=== PATIENT | female | born 1990 | race Caucasian/White ===

== ENCOUNTER 2017-11-20 13:27 | Emergency (ER) | payer BC ==
--- NOTE | 2017-11-20 14:33 | ED ---
General Adult HPI - General Chief complaint: Abdominal Pain Stated complaint: 19wks / dog fell on her stomach Source: patient Mode of arrival: ambulatory Limitations: no limitations - History of Present Illness Initial comments: Dictation was produced using [employer] dictation software. please excuse any grammatical, word or spelling errors. Chief Complaint: 27-year-old female presents with abdominal pain after abdominal trauma. She is allegedly 19 weeks based on ultrasound. History of Present Illness: A 27-year-old female who is with her first child. She is allegedly 19 weeks based on ultrasound performed by VIN[employer] TOP INSTALLER. She has been taking vitamins. Proximal to 1 hour prior to arrival shows her dog jumped approximately 6 feet and landed on her abdomen. After the incident she began complaining of some abdominal pain that persisted. Patient otherwise feels well. Denies any vaginal discharge or vaginal bleeding. Patient states she has not been feeling the baby moving however has not noticed any movement during this . Patient denies any palpitations with the . Patient has no other medical complaints. Denies any nausea vomiting. Past Medical History: [reviewed, none to report] Past Surgical History:[reviewed, none to report] Social History: [denies alcohol, tobacco or illicit drug use] Family History: reviewed and noncontributory The ROS documented in this emergency department record has been reviewed and confirmed by me. Those systems with pertinent positive or negative responses have been documented in the HPI. All other systems are other negative and/or noncontributory. - Related Data Home Medications Medication Instructions Recorded Confirmed Psh-Zung-Wmzxo Acid 1 cap PO DAILY 11/20/17 11/20/17 [-U Capsule (formulary)] Allergies Allergy/AdvReac Type Severity Reaction Status Date / Time Sulfa (Sulfonamide Allergy Rash/Hives Verified 11/20/17 13:58 Antibiotics) Review of Systems ROS Statement: Those systems with pertinent positive or pertinent negative responses have been documented in the HPI. ROS Other: All systems not noted in ROS Statement are negative. Past Medical History Past Medical History: No Reported History History of Any Multi-Drug Resistant Organisms: None Reported Past Surgical History: No Surgical Hx Reported Past Psychological History: No Psychological Hx Reported Smoking Status: Never smoker Past Alcohol Use History: None Reported Past Drug Use History: None Reported General Exam - General Exam Comments Initial Comments: Vitals: Vital signs upon arrival are within acceptable limits PHYSICAL EXAM: General Impression: Alert and oriented x3, not in acute distress HEENT: Normocephalic atraumatic, extra-ocular movements intact, pupils equal and reactive to light bilaterally, mucous membranes moist. Cardiovascular: Heart regular rate and rhythm, S1&S2 audible, no murmurs, rubs or gallops Chest: Lungs clear to auscultation bilaterally, no rhonchi, no wheeze, no rales Abdomen: Bowel sounds present, abdomen soft, non-tender, non-distended, no organomegaly, no external signs of trauma to the abdomen Musculoskeletal: Pulses present and equal in all extremities, no peripheral edema Motor: Power 5/5 bilaterally, no focal deficits noted Neurological: CN II-XII grossly intact, no focal motor or sensory deficits noted Skin: Intact with no visualized rashes Psych: Normal affect and mood Limitations: no limitations Course Vital Signs 11/20/17 13:41 Temperature 98.7 F Pulse Rate 84 Respiratory 20 Rate Blood Pressure 126/88 O2 Sat by Pulse 99 Oximetry Medical Decision Making - Medical Decision Making ED course: 27-year-old female who is 19 weeks presents after abdominal trauma. Physical examination is benign. No history of vaginal bleeding. Vital signs are stable. bedside ultrasound was performed showing intrauterine consistent with stated age. Documented heart rate was approximately 187. There was movement noted to the baby. No free fluid in the abdomen. Labor and delivery staff was notified to document heart tones.OB ultrasound was obtained. Single live intrauterine with establish gestational age. heart rate was measured be 146. Patient reports improvement of her symptoms. Discussed with patient that if she feels that her pain is severe she said the hospital where she can be discharged with follow-up with her VINYL TOP INSTALLER. Patient feels as though her pain is improving with mild residual symptoms. I believe this disposition is reasonable given that patient feels improved and trauma to the abdomen is negligible and ultrasound is negative that she can be discharged with follow-up with her VINYL TOP INSTALLER. At this point doubt any serious abdominal or pelvic trauma Patient is told to seek medical attention if she expressing worsening abdominal pain or vaginal bleeding. Patient is understandable and agreeable. She'll be discharge. Told discharge patient was distress, physical examination is benign. Vital signs are stable. Disposition Clinical Impression: Abdominal trauma, Disposition: HOME SELF-CARE Condition: Fair Instructions: Blunt Abdominal Injury (ED) Additional Instructions: follow up with [facility] INSTALLER Is patient prescribed a controlled substance at d/c from ED?: No Referrals: Roberto Carrillo MD [Primary Care Provider] - 1-2 days
--- NOTE | 2017-11-20 16:01 | US ---
EXAMINATION TYPE: US OB >= 14 wk fetus DATE OF EXAM: 11/20/2017 COMPARISON: None CLINICAL HISTORY: 27-year-old female with Pain. Patient states dog jumped on her abdomen. General pa in. TECHNIQUE: Transabdominal (TA) FINDINGS: GESTATIONAL AGE / DATING Physician Established: (18 weeks/1 days) EDC: 04/22/2018 Dates by Current Scan: (18 weeks/0 days) EDC: 04/23/2018 SURVEY IUP: Single PLACENTA: Posterior PREVIA: No Previa but slightly low lying measuring 4.4 cm from the internal cervical os. JENNIE: 15.2 cm Normal CERVICAL LENGTH (transabdominal: norm > 3.0cm): 3.6 cm BIOMETRY PRESENTATION: Variable LIE: Transverse with head maternal Rt BPD: 4.0 cm 18 weeks / 0 days HC: 14.9 cm 18 weeks / 0 days AC: 12.9 cm 18 weeks / 3 days FL: 2.6 cm 18 weeks / 0 days ESTIMATED WEIGHT IN GRAMS: 228.2 grams ESTIMATED WEIGHT IN LBS/OZ: 0 lbs. 8 oz. WEIGHT PERCENTAGE BASED ON ESTABLISHED DATES: 48.1% HC/AC: 1.2 Normal FL/AC: 20.4 HEART RATE: 146 bpm RHYTHM: Normal Silica Mixer Operator notes: Single live IUP measuring 18 weeks 0 days IMPRESSION: 1. Single live intrauterine with established gestational age of 18 weeks 1 day. Current ult rasound biometry is concordant (18 weeks 0 days). 2. Complete survey recommended at 18-20 weeks.
[2017-11-20 16:34] VITALS: BP 143/65; PULSE 78; RESP 18; TEMP 98.9
== END 2017-11-20 16:35 | disposition home or self-care (01) ==
LOC: EC 13:27
DX: O9A.22 Injury, poisoning and certain other consequences of external causes complicating childbirth (principal); S39.91XA Unspecified injury of abdomen, initial encounter; Z88.2 Allergy status to sulfonamides; Z3A.18 18 weeks gestation of pregnancy; W54.1XXA Struck by dog, initial encounter
CPT/HCPCS: 76805; 99284

== ENCOUNTER 2018-02-04 22:57 | Emergency (ER) | payer BC ==
--- NOTE | 2018-02-05 00:46 | ED ---
Female Urogenital HPI - General Chief complaint: Urogenital Stated complaint: skin issue Time Seen by Provider: 02/05/18 00:17 Source: patient, RN notes reviewed Mode of arrival: ambulatory Limitations: no limitations - History of Present Illness Initial comments: 27-year-old female presents emergency from chief complaint of rash on her labia. Patient states is slightly white in nature and raise. She states that is not painful or itchy. Patient states that she has no abnormal discharge from her baseline. She has no dysuria no hematuria. Patient states that she's had no prior STDs including herpes outbreak. 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 - Related Data Home Medications Medication Instructions Recorded Confirmed Yak-Muah-Kuhfe Acid 1 cap PO DAILY 11/20/17 11/20/17 [-U Capsule (formulary)] Allergies Allergy/AdvReac Type Severity Reaction Status Date / Time Sulfa (Sulfonamide Allergy Rash/Hives Verified 02/04/18 23:11 Antibiotics) Review of Systems ROS Statement: Those systems with pertinent positive or pertinent negative responses have been documented in the HPI. ROS Other: All systems not noted in ROS Statement are negative. Past Medical History Past Medical History: Asthma Additional Past Medical History / Comment(s): scoliosis History of Any Multi-Drug Resistant Organisms: None Reported Past Surgical History: No Surgical Hx Reported Additional Past Surgical History / Comment(s): wisdom teeth removed Past Psychological History: No Psychological Hx Reported Smoking Status: Never smoker Past Alcohol Use History: None Reported Past Drug Use History: None Reported General Exam Limitations: no limitations General appearance: alert, in no apparent distress Head exam: Present: atraumatic, normocephalic, normal inspection Respiratory exam: Present: normal lung sounds bilaterally. Absent: respiratory distress, wheezes, rales, rhonchi, stridor Cardiovascular Exam: Present: regular rate, normal rhythm, normal heart sounds. Absent: systolic murmur, diastolic murmur, rubs, gallop, clicks GI/Abdominal exam: Present: soft, normal bowel sounds. Absent: distended, tenderness, guarding, rebound, rigid External exam: Present: other (Exam performed with Angelica SEGAL). Absent: normal external exam (Genital warts noted in the lower labial region) Course Vital Signs 02/04/18 23:06 Temperature 98.2 F Pulse Rate 99 Respiratory 18 Rate Blood Pressure 133/76 O2 Sat by Pulse 98 Oximetry Medical Decision Making - Medical Decision Making 27-year-old female presented emergency dept for rash. Patient is noted have genital wart. Patient was instructed to follow-up with her TRIMMING OPERATOR for treatment. Return parameters discussed. Disposition Clinical Impression: Genital warts Disposition: HOME SELF-CARE Condition: Stable Instructions: Genital Warts (ED) Additional Instructions: Please contact your TRIMMING OPERATOR for further treatment.Please return to the Emergency Department if symptoms worsen or any other concerns. Is patient prescribed a controlled substance at d/c from ED?: No Referrals: Roberto Carrillo MD [Primary Care Provider] - 1-2 days Time of Disposition: 00:46
[2018-02-05 01:03] VITALS: BP 110/61; PULSE 89; RESP 17; TEMP 98.4
== END 2018-02-05 00:55 | disposition home or self-care (01) ==
LOC: EC 22:57
DX: O98.312 Other infections with a predominantly sexual mode of transmission complicating pregnancy, second trimester (principal); A63.0 Anogenital (venereal) warts; Z88.2 Allergy status to sulfonamides; Z3A.24 24 weeks gestation of pregnancy
CPT/HCPCS: 99283

== ENCOUNTER 2018-02-09 21:50 | Outpatient (CLI) | payer BC ==
[2018-02-09 23:19] VITALS: BP 124/59; PULSE 96; RESP 18; TEMP 97.8
--- NOTE | 2018-02-12 07:18 | P.MSEPDOC ---
Presenting Problems - Arrival Data Date of Arrival on Unit: 02/09/18 Time of Arrival on Unit: 21:50 Mode of Transport: Wheelchair - Complaint OB-Reason for Admission/Chief Complaint: Pain Comment: abd pain Medical History - Information : 1 Para: 0 Term: 0 : 0 Abortions: Spontaneous or Elective: 0 Number of Living Children: 0 - Gestational Age Gestational Age by NOEMY (wks/days): 29 Weeks and 5 Days - History Comment: HPV, current outbreak Review of Systems - Review of Systems Constitutional: No problems Breast: No problems ENT: No problems Cardiovascular: No problems Respiratory: No problems Gastrointestinal: No problems Genitourinary: No problems Musculoskeletal: No problems Neurological: No problems Skin: No problems Vital Signs - Temperature Temperature: 97.8 F Temperature Source: Temporal Artery Scan - Pulse Right Pulse Rate: 96 Pulse Assessment Method: Pulse Oximetry - Respirations Respiratory Rate: 18 O2 Sat by Pulse Oximetry: 98 - Blood Pressure Right Arm Blood Pressure: 124/59 Blood Pressure Mean: 80 Blood Pressure Source: Automatic Cuff Medical Screen Scoring (Pre) - Cervical Exam Dilation: Exam Deferred Effacement: Exam Deferred - Uterine Contractions Frequency: N/A Duration: N/A Intensity: N/A - Maternal Vital Signs Maternal Temperature: N/A Maternal Blood Pressure: N/A Signs of Preeclampsia: N/A Maternal Respirations: N/A - Assessment Baseline FHR: 135 Heart Rate - NICHD Category: Category I (Normal) = 0 NST: Reactive Position: N/A - Total Score Total Score (Pre): 0 - Level of Risk Level of Risk: Low (0-5) Physician Notification (Pre) - Physician Notified Physician Notified Date: 02/09/18 Physician Notified Time: 22:40 Physician/Practitioner Notifed:: Dr Sigala New Order Received: Yes - Notification Comment Comment: reported on c/o abd pain, concerned that it's from sewage leak at home. reported on fhts, no cntrx, no SVE, vitals WNL, current outbreak of HPV. pt see's Dr Sims in office tomorrow afternoon. orders to d/c home with instructions, unless she'd feel better being seen in ER, but has been obstetrically cleared. Disposition - Disposition OB Disposition: Discharge to home Discharge Date: 02/09/18 Discharge Time: 22:45 I agree with the RN Medical Screening Exam: Yes Risk & Benefit of care provided described in d/c instruction: Yes Diagnosis: UNSPECIFIED ABDOMINAL PAIN
== END 2018-02-09 22:45 | disposition home or self-care (01) ==
LOC: FBPOP 21:50
PROVIDERS: ATTEND Obstetrics & Gynecology
DX: O26.893 Other specified pregnancy related conditions, third trimester (principal); Z3A.29 29 weeks gestation of pregnancy
CPT/HCPCS: 59025; 99213

== ENCOUNTER 2018-04-13 16:45 | Outpatient (CLI) | payer BC ==
[2018-04-13 17:19] LABS: Basophils % (A) 0 %; Eosinophils # (A) 0.2 k/uL (0-0.7); Eosinophils % (A) 1 %; HCT 35.5 % (34.0-46.0); HGB 12.2 gm/dL (11.4-16.0); Lymphocytes % (A) 14 %; MCH 31.9 pg (25.0-35.0); MCHC 34.4 g/dL (31.0-37.0); MCV 92.8 fL (80.0-100.0); Mean Platelet Volume 7.4; Monocytes # (A) 0.8 k/uL (0-1.0); Monocytes % (A) 6 %; Neutrophils # (A) 10.4 k/uL (1.3-7.7); Neutrophils % (A) 77 %; Platelet Count 245 k/uL (150-450); RBC 3.82 m/uL (3.80-5.40); RDW 13.7 % (11.5-15.5); WBC 13.5 k/uL (3.8-10.6)
[2018-04-13 17:20] LABS: Appearance,Urine Cloudy (Clear); Bilirubin,Urine Negative (Negative); Blood,Urine Negative (Negative); Color,Urine Yellow; Glucose,Urine (UA) Trace (Negative); Ketones,Urine Negative (Negative); Leukocyte Esterase,Urine Trace (Negative); Mucus,Urine Rare /hpf; Nitrite,Urine Negative (Negative); PH, Urine 6.5 (5.0-8.0); Protein,Urine Trace (Negative); RBC,Urine 1 /hpf (0-5); Specific Gravity,Urine 1.017 (1.001-1.035); Squamous Epithelial Cell,Urine 7 /hpf (0-4); Urobilinogen,Urine <2.0 mg/dL (<2.0); WBC,Urine 3 /hpf (0-5)
[2018-04-13 17:28] LABS: Partial Thromboplastin Time 22.2 sec (22.0-30.0); Prothrombin Time 9.7 sec (9.0-12.0)
[2018-04-13 17:36] LABS: ALT 27 U/L (9-52); AST 25 U/L (14-36); Albumin 3.1 g/dL (3.5-5.0); Alkaline Phosphatase 115 U/L (38-126); Anion Gap 8 mmol/L; Blood Urea Nitrogen 6 mg/dL (7-17); Calcium 9.5 mg/dL (8.4-10.2); Carbon Dioxide 19 mmol/L (22-30); Chloride 110 mmol/L (98-107); Glucose 140 mg/dL (74-99); LDH 470 U/L (313-618); Potassium 4.1 mmol/L (3.5-5.1); Sodium 137 mmol/L (137-145); Total Bilirubin 0.2 mg/dL (0.2-1.3); Total Protein 5.8 g/dL (6.3-8.2); Uric Acid 4.1 mg/dL (3.7-7.4)
--- NOTE | 2018-04-13 18:34 | US ---
EXAMINATION TYPE: US OB >= 14 wk fetus DATE OF EXAM: 04/13/2018 COMPARISON: None CLINICAL HISTORY: JENNIE and EFWHigh blood pressure. TECHNIQUE: Transabdominal (TA) GESTATIONAL AGE / DATING Physician Established: (38 weeks/5 days) EDC: 04/22/2018 Dates by LMP: (38 weeks/5 days) EDC: 04/22/2018 Dates by First Scan: (18 weeks/0 days) EDC: 04/23/2018 Dates by Current Scan: (36 weeks/4 days) EDC: 05/07/2018 SURVEY IUP: Single PLACENTA: Posterior PREVIA: No Previa JENNIE: 16.68 cm Normal CERVICAL LENGTH (transabdominal: Not well visualized due to shadowing of baby head. BIOMETRY PRESENTATION: Vertex LIE: Longitudinal BPD: 9.26 cm 37 weeks / 4 days HC: 32.77 cm 37 weeks / 1 days AC: 11.26 cm 35 weeks / 3 days FL: 7.24 cm 37 weeks / 0 days ESTIMATED WEIGHT IN GRAMS: 2904 grams ESTIMATED WEIGHT IN LBS/OZ: 6 lbs. 6 oz. WEIGHT PERCENTAGE BASED ON ESTABLISHED DATES: 13.4% HC/AC: 1.04cm Normal FL/AC: 22.94cm Normal HEART RATE: 148 bpm RHYTHM: Normal Viable IUP 36w 4d HR 148 BPM IMPRESSION: The estimated weight is 13.4 percentile. IUGR should be considered.
--- NOTE | 2018-04-25 11:59 | P.MSEPDOC ---
Presenting Problems - Arrival Data Date of Arrival on Unit: 04/13/18 Time of Arrival on Unit: 16:50 Mode of Transport: Portable Disposition - Disposition Discharge Date: 04/13/18 Discharge Time: 18:14 I agree with the RN Medical Screening Exam: Yes Risk & Benefit of care provided described in d/c instruction: Yes Diagnosis: GESTATIONAL HTN W/O SIGNIFICANT PROTEINURIA, THIRD TRIMESTER
== END 2018-04-13 18:15 | disposition home or self-care (01) ==
LOC: FBPOP 16:45
PROVIDERS: ATTEND Obstetrics & Gynecology
DX: O13.3 Gestational [pregnancy-induced] hypertension without significant proteinuria, third trimester (principal); Z3A.36 36 weeks gestation of pregnancy
CPT/HCPCS: 59025; 76805; 80053; 81001; 82570; 83615; 84156; 84550; 85025; 85384; 85610; 85730

== ENCOUNTER 2018-04-15 06:25 | Inpatient (IN) | payer BC ==
[2018-04-15] MEDS ORDERED: LIDOCAINE 1% INJ 10MG/ML (20 ML MDV) SQ PRN (06:47)
[2018-04-15] MEDS ORDERED: TERBUTALINE 1 MG/ML VIAL SQ PRN (06:47)
[2018-04-15] MEDS ORDERED: METHYLERGONOVINE 0.2 MG/ML 1 ML AMP IM PRN (06:47)
[2018-04-15] MEDS ORDERED: OXYTOCIN 10 UNIT/ML 1 ML VIAL IM PRN (06:47)
[2018-04-15] MEDS ORDERED: CARBOPROST TROMETHAMINE 250 MCG/ML 1 ML AMP IM PRN (06:47)
[2018-04-15 06:57] VITALS: BMI 46.2
[2018-04-15] MEDS: LACTATED RINGERS 1,000 ML IV SCH ×4 (06:59→18:22)
[2018-04-15 07:00] LABS: Basophils % (A) 0 %; Eosinophils # (A) 0.2 k/uL (0-0.7); Eosinophils % (A) 1 %; HCT 38.8 % (34.0-46.0); HGB 12.6 gm/dL (11.4-16.0); Lymphocytes % (A) 11 %; MCH 30.5 pg (25.0-35.0); MCHC 32.4 g/dL (31.0-37.0); MCV 94.1 fL (80.0-100.0); Monocytes # (A) 0.9 k/uL (0-1.0); Monocytes % (A) 5 %; Neutrophils # (A) 14.5 k/uL (1.3-7.7); Neutrophils % (A) 81 %; Platelet Count 256 k/uL (150-450); RBC 4.12 m/uL (3.80-5.40); RDW 13.9 % (11.5-15.5); WBC 17.9 k/uL (3.8-10.6)
[2018-04-15] MEDS ORDERED: BUTORPHANOL 1 MG/ML 1 ML VIAL IV PRN (08:58)
[2018-04-15] MEDS ORDERED: ROPIVACAINE 100 MG, fentaNYL (PF) 200 MCG in SODIUM CHLORIDE 0.9% 76 ML EPIDURAL ONE (14:00)
[2018-04-15] MEDS ORDERED: AMPICILLIN 2,000 MG in SODIUM CHLORIDE 0.9% 100 ML IVPB STA (20:18)
[2018-04-16] MEDS ORDERED: AMPICILLIN 1,000 MG in SODIUM CHLORIDE 0.9% 50 ML IVPB SCH (01:00)
[2018-04-16] MEDS: LACTATED RINGERS 1,000 ML IV SCH (02:24)
[2018-04-16] MEDS ORDERED: LANOLIN CREAM 5 GM TUBE TOPICAL PRN ×2 (02:45→04:05)
[2018-04-16] MEDS ORDERED: WITCH HAZEL 1 EACH MED..PAD TOPICAL PRN ×2 (02:45→04:05)
[2018-04-16] MEDS ORDERED: IBUPROFEN 600 MG TAB PO PRN (02:45)
[2018-04-16] MEDS ORDERED: HYDROCORTISONE 2.5% RECTAL CREAM 30 GM TUBE RECTAL PRN ×2 (02:45→04:05)
[2018-04-16] MEDS ORDERED: diphenhydrAMINE 25 MG CAP PO PRN ×2 (02:45→04:05)
[2018-04-16] MEDS ORDERED: ZOLPIDEM 5 MG TAB PO PRN ×2 (02:45→04:05)
[2018-04-16] MEDS ORDERED: ACETAMINOPHEN TAB 325 MG TAB PO PRN ×2 (02:45→04:05)
[2018-04-16] MEDS ORDERED: diphenhydrAMINE 50 MG/ML 1 ML VIAL IVP PRN ×4 (02:45→04:05)
[2018-04-16] MEDS ORDERED: SIMETHICONE 80 MG CHEWABLE PO PRN ×2 (02:45→04:05)
[2018-04-16] MEDS ORDERED: BENZOCAINE/MENTHOL SPRAY 1 GM/SPRAY AEROSOL TOPICAL PRN ×2 (02:45→04:05)
[2018-04-16] MEDS ORDERED: diphenhydrAMINE 50 MG CAP PO PRN ×2 (02:45→04:05)
--- NOTE | 2018-04-16 02:48 | P.HPOB ---
History of Present Illness H&P Date: 04/16/18 Chief Complaint: Intrauterine at term: Induction of labor Dagmar is a 27-year-old at 39 weeks gestation arise for induction of labor. Earlier this week she did have elevated blood pressures however preeclamptic labs and subsequent blood pressures have been normal however, due to same and her being term decision to move forward with a delivery has been made. She does have small HPV lesions on the lower part of the vagina but they' re nonocclusive and are not bleeding. No other risk factors or problems occur during the and she is feeling well at this time. Pertinent labs AB+ blood type Rh antibody was negative, rubella immune, hepatitis B surface antigen and RPR were both negative as well. Artificial rupture membranes was performed and clear fluid was noted she was dilated to 1-2 cm. Category 1 tracing was noted at the time of artificial rupture membranes Past Medical History Past Medical History: Asthma Additional Past Medical History / Comment(s): scoliosis History of Any Multi-Drug Resistant Organisms: None Reported Past Surgical History: No Surgical Hx Reported Additional Past Surgical History / Comment(s): wisdom teeth removed Past Anesthesia/Blood Transfusion Reactions: No Reported Reaction Past Psychological History: Depression Smoking Status: Never smoker Past Alcohol Use History: None Reported Past Drug Use History: None Reported - Past Family History Mother Family Medical History: COPD Additional Family Medical History / Comment(s): Depression Medications and Allergies Home Medications Medication Instructions Recorded Confirmed Type Ffp-Jtul-Fuqan Acid 1 cap PO DAILY 11/20/17 04/15/18 History [-U Capsule (formulary)] Allergies Allergy/AdvReac Type Severity Reaction Status Date / Time Sulfa (Sulfonamide Allergy Rash/Hives Verified 04/15/18 06:46 Antibiotics) Exam Osteopathic Statement: *. No significant issues noted on an osteopathic structural exam other than those noted in the History and Physical/Consult. Vital Signs Temp Pulse Resp BP 04/15/18 06:50 98.2 F 109 H 16 133/70 - OBG Physical Exam Breast: both: normal (no masses) Abdomen: bowel sounds normal, no diffuse tenderness, no bruit present, no guarding noted, no hepatomegaly, no splenomegaly, no mass Vulva: both: normal Vagina: normal moisture, no discharge Cervix: no lesion, no discharge Uterus: normal size, normal contour Adnexa: both: normal Anus/Rectum: normal perianal skin, no rectal mass, no hemorrhoids, heme negative Results Result Diagrams: 04/15/18 06:50 Abnormal Lab Results - Last 24 Hours (Table) 04/15/18 Range/Units 06:50 WBC 17.9 H (3.8-10.6) k/uL Neutrophils # 14.5 H (1.3-7.7) k/uL
--- NOTE | 2018-04-16 02:49 | P.PROBDLV ---
Vaginal Delivery Note - . Vaginal Delivery Note: Patient progressed complete and pushed with spontaneous vaginal delivery of a viable male over a first-degree perineal laceration. Following delivery of the head from left occiput anterior position, shoulders were easily delivered with gentle downward upper traction with the baby delivered from left occiput anterior position. Once baby was fully delivered mouth nares were bulb suctioned and baby was placed on mother's abdomen where the umbilical cord was clamped cut usual fashion. Placenta was then delivered intact and Pitocin was added to the IV. scores were 8 and 9 at one and 5 minutes respectively and the weight was 8 lbs. 0 oz. Both mother and baby are stable following delivery.
[2018-04-16] MEDS ORDERED: OXYTOCIN 20 UNITS/1000 ML NS 1,000 ML IV SCH (04:30)
[2018-04-16] MEDS ORDERED: LIDOCAINE 1% INJ 10MG/ML (20 ML MDV) SQ PRN (04:51)
[2018-04-16] MEDS ORDERED: DIPH,PERTUS(ACELL)TETVAC-LF 0.5 ML VIAL IM ONE (07:24)
[2018-04-16] MEDS: SENNOSIDES-DOCUSATE SODIUM 1 EACH TAB PO SCH ×2 (07:46→20:13)
[2018-04-16] MEDS ORDERED: SENNOSIDES-DOCUSATE SODIUM 1 EACH TAB PO SCH (08:00)
[2018-04-17 07:11] LABS: Basophils % (A) 0 %; Eosinophils # (A) 0.3 k/uL (0-0.7); Eosinophils % (A) 2 %; HGB 10.7 gm/dL (11.4-16.0); Lymphocytes # (A) 2.3 k/uL (1.0-4.8); Lymphocytes % (A) 12 %; MCH 32.3 pg (25.0-35.0); MCHC 34.3 g/dL (31.0-37.0); MCV 94.1 fL (80.0-100.0); Mean Platelet Volume 7.5; Monocytes % (A) 5 %; Neutrophils # (A) 15.6 k/uL (1.3-7.7); Neutrophils % (A) 80 %; Platelet Count 219 k/uL (150-450); RDW 14.1 % (11.5-15.5); WBC 19.5 k/uL (3.8-10.6)
[2018-04-17] MEDS: SENNOSIDES-DOCUSATE SODIUM 1 EACH TAB PO SCH ×2 (08:29→20:35)
--- NOTE | 2018-04-17 08:40 | P.PNOBGVD ---
Subjective - Subjective Principal diagnosis: day 1 Interval history: Dagmar is ambulating and voiding. She is tolerating her diet. She voices no complaints. Vital signs are stable and afebrile. Patient reports: Reports appetite normal, Reports voiding normally, Reports pain well controlled, Reports ambulating normally [place]: doing well Objective - Latest Vital Signs Latest vital signs: Vital Signs Temp Pulse Resp BP Pulse Ox 04/17/18 00:00 97.8 F 92 18 126/72 100 04/16/18 20:00 97.7 F 106 H 18 122/68 96 04/16/18 17:47 97.8 F 101 H 18 139/94 04/16/18 12:00 98.2 F 114 H 18 121/73 96 - Exam Lungs: bilateral: normal Chest: Normal S1, Normal S2 Extremities: Present: normal Abdomen: Present: normal appearance, soft Uterus: Present: normal, firm - Labs Labs: Abnormal Lab Results - Last 24 Hours (Table) 04/17/18 Range/Units 06:33 WBC 19.5 H (3.8-10.6) k/uL RBC 3.30 L (3.80-5.40) m/uL Hgb 10.7 L (11.4-16.0) gm/dL Hct 31.0 L (34.0-46.0) % Neutrophils # 15.6 H (1.3-7.7) k/uL
[2018-04-17] MEDS: IBUPROFEN 600 MG TAB PO PRN ×2 (11:44→18:09)
[2018-04-18] MEDS: IBUPROFEN 600 MG TAB PO PRN (07:28)
[2018-04-18] MEDS: SENNOSIDES-DOCUSATE SODIUM 1 EACH TAB PO SCH (07:29)
[2018-04-18 07:41] VITALS: BP 141/75; PULSE 98; RESP 18; TEMP 97.8
--- NOTE | 2018-04-18 11:10 | P.DS ---
Providers Date of admission: 04/15/18 06:25 Expected date of discharge: 04/18/18 Attending physician: Maverick Sims Primary care physician: Roberto Carrillo - Discharge Diagnosis(es) (1) Normal vaginal delivery Current Visit: Yes Status: Acute Hospital Course: Patient presented and underwent a normal vaginal delivery. She had an uncomplicated course. She'll be discharged home day #1 in stable condition to follow-up with Dr. Catalan in 6 weeks. Plan - Discharge Summary New Discharge Prescriptions: New Ibuprofen [Motrin] 600 mg PO Q6HR PRN #30 tab PRN Reason: Pain No Action Hkl-Uuda-Vriby Acid [-U Capsule (formulary)] 1 cap PO DAILY Discharge Medication List Okp-Iqch-Tapbw Acid [-U Capsule (formulary)] 1 cap PO DAILY 10/03 [History] Ibuprofen [Motrin] 600 mg PO Q6HR PRN #30 tab 04/17/18 [Rx] Follow up Appointment(s)/Referral(s): Maverick Sims DO [Doctor of Osteopathic Medicine] - 6 Weeks Activity/Diet/Wound Care/Special Instructions: No heavy lifting, limit stairs and driving, and pelvic rest. If any high temperatures, heavy bleeding, or severe pain call my office Discharge Disposition: HOME SELF-CARE
== END 2018-04-18 12:45 | disposition home or self-care (01) | DRG 806 ==
LOC: 4FBP 06:25
PROVIDERS: ADMIT Obstetrics & Gynecology; ATTEND Obstetrics & Gynecology
PROC: 3E0R3NZ Introduction of Analgesics, Hypnotics, Sedatives into Spinal Canal, Percutaneous Approach (ICD-10-PCS; principal; 2018-04-15)
PROC: 10907ZC Drainage of Amniotic Fluid, Therapeutic from Products of Conception, Via Natural or Artificial Opening (ICD-10-PCS; principal; 2018-04-15)
PROC: 0HQ9XZZ Repair Perineum Skin, External Approach (ICD-10-PCS; principal; 2018-04-15)
PROC: 00HU33Z Insertion of Infusion Device into Spinal Canal, Percutaneous Approach (ICD-10-PCS; principal; 2018-04-15)
PROC: 10E0XZZ Delivery of Products of Conception, External Approach (ICD-10-PCS; principal; 2018-04-15)
DX: O70.0 First degree perineal laceration during delivery (principal); O98.32 Other infections with a predominantly sexual mode of transmission complicating childbirth; Z37.0 Single live birth; Z3A.39 39 weeks gestation of pregnancy; M41.9 Scoliosis, unspecified; Z81.8 Family history of other mental and behavioral disorders; Z82.5 Family history of asthma and other chronic lower respiratory diseases; A63.0 Anogenital (venereal) warts; Z88.2 Allergy status to sulfonamides
CPT/HCPCS: 85025; 86850; 86900; 86901; 90715

== ENCOUNTER 2019-02-19 06:19 | Emergency (ER) | payer BC, OTHER ==
[2019-02-19 06:34] VITALS: BP 123/71; PULSE 78; RESP 20; TEMP 98.5
[2019-02-19] MEDS ORDERED: ONDANSETRON 4 MG/2 ML VIAL IVP STA (06:43)
[2019-02-19] MEDS ORDERED: HYDROmorphone 0.5 MG/0.5 ML SYRINGE IVP STA (06:43)
[2019-02-19] MEDS ORDERED: SODIUM CHLORIDE 0.9% 1,000 ML IV STA (06:43)
--- NOTE | 2019-02-19 06:46 | ED ---
Abdominal Pain HPI - General Chief Complaint: Abdominal Pain Stated Complaint: Rt Upper Abd Pain Time Seen by Provider: 02/19/19 06:34 Source: patient, RN notes reviewed Mode of arrival: ambulatory Limitations: no limitations - History of Present Illness Initial Comments: 28-year-old female presents emergency Department with chief complaint of right-sided abdominal pain patient states certain went to is progressively worsened. Patient states initially started with right shoulder pain states that has resolved and she on his right-sided pain. Patient admits nausea without vomiting. Patient denies any diarrhea, constipation, fever, chills, dysuria, hematuria. Patient denies any chance . Patient states she's never had any peanuts the past. Patient states her last mental cycle was 3 weeks ago but denies any chance . Patient is not taking any current pain meds. - Related Data Home Medications Medication Instructions Recorded Confirmed Wve-Rxpg-Lhvrd Acid 1 cap PO DAILY 11/20/17 04/15/18 [-U Capsule (formulary)] Previous Rx's Medication Instructions Recorded Ibuprofen [Motrin] 600 mg PO Q6HR PRN #30 tab 04/17/18 Allergies Allergy/AdvReac Type Severity Reaction Status Date / Time Sulfa (Sulfonamide Allergy Rash/Hives Verified 02/19/19 06:34 Antibiotics) Review of Systems ROS Statement: Those systems with pertinent positive or pertinent negative responses have been documented in the HPI. ROS Other: All systems not noted in ROS Statement are negative. Past Medical History Past Medical History: Asthma Additional Past Medical History / Comment(s): scoliosis History of Any Multi-Drug Resistant Organisms: None Reported Past Surgical History: No Surgical Hx Reported Additional Past Surgical History / Comment(s): wisdom teeth removed Past Anesthesia/Blood Transfusion Reactions: No Reported Reaction Past Psychological History: Depression Smoking Status: Current every day smoker Past Alcohol Use History: Occasional Past Drug Use History: None Reported - Past Family History Mother Family Medical History: COPD Additional Family Medical History / Comment(s): Depression General Exam Limitations: no limitations General appearance: alert, in no apparent distress Head exam: Present: atraumatic, normocephalic, normal inspection Eye exam: Present: normal appearance, PERRL, EOMI. Absent: scleral icterus, conjunctival injection, periorbital swelling ENT exam: Present: normal exam, normal oropharynx, mucous membranes moist Neck exam: Present: normal inspection, full ROM. Absent: tenderness, meningi smus, lymphadenopathy Respiratory exam: Present: normal lung sounds bilaterally. Absent: respiratory distress, wheezes, rales, rhonchi, stridor Cardiovascular Exam: Present: regular rate, normal rhythm, normal heart sounds. Absent: systolic murmur, diastolic murmur, rubs, gallop, clicks GI/Abdominal exam: Present: soft, tenderness (Right upper quadrant), normal bowel sounds. Absent: distended, guarding, rebound, rigid Back exam: Present: CVA tenderness (R). Absent: CVA tenderness (L) Neurological exam: Present: alert, oriented X3 Skin exam: Present: warm, dry, intact, normal color. Absent: rash Course Vital Signs 02/19/19 06:31 Temperature 98.5 F Pulse Rate 78 Respiratory 20 Rate Blood Pressure 123/71 O2 Sat by Pulse 99 Oximetry Medical Decision Making - Medical Decision Making 28 year old female presented for right-sided abdominal pain. Patient had labs, urinalysis and ultrasound of her gallbladder. This shows contracted gallbladder otherwise no thickening, no evidence of acute cholecystitis. Patient might have an Social color. Patient will follow-up with internal surgery. Patient is comfortable with discharge vitals are stable. Patient was given strict return parameters. - Lab Data Result diagrams: 02/19/19 07:04 02/19/19 07:04 Lab Results 02/19/19 02/19/19 02/19/19 Range/Units 06:35 06:35 07:04 WBC 15.0 H (3.8-10.6) k/uL RBC 4.33 (3.80-5.40) m/uL Hgb 13.8 (11.4-16.0) gm/dL Hct 40.9 (34.0-46.0) % MCV 94.3 (80.0-100.0) fL MCH 31.8 (25.0-35.0) pg MCHC 33.7 (31.0-37.0) g/dL RDW 12.0 (11.5-15.5) % Plt Count 302 (150-450) k/uL Neutrophils % 75 % Lymphocytes % 14 % Monocytes % 5 % Eosinophils % 3 % Basophils % 2 % Neutrophils # 11.3 H (1.3-7.7) k/uL Lymphocytes # 2.1 (1.0-4.8) k/uL Monocytes # 0.7 (0-1.0) k/uL Eosinophils # 0.5 (0-0.7) k/uL Basophils # 0.3 H (0-0.2) k/uL Sodium (137-145) mmol/L Potassium (3.5-5.1) mmol/L Chloride (98-107) mmol/L Carbon Dioxide (22-30) mmol/L Anion Gap mmol/L BUN (7-17) mg/dL Creatinine (0.52-1.04) mg/dL Est GFR (CKD-EPI)AfAm (>60 ml/min/1.73 sqM) Est GFR (CKD-EPI)NonAf (>60 ml/min/1.73 sqM) Glucose (74-99) mg/dL Plasma Lactic Acid Reji (0.7-2.0) mmol/L Calcium (8.4-10.2) mg/dL Total Bilirubin (0.2-1.3) mg/dL AST (14-36) U/L ALT (9-52) U/L Alkaline Phosphatase (38-126) U/L Total Protein (6.3-8.2) g/dL Albumin (3.5-5.0) g/dL Lipase (23-300) U/L Urine Color Yellow Urine Appearance Clear (Clear) Urine pH 6.0 (5.0-8.0) Ur Specific [place] 1.023 (1.001-1.035) Urine Protein Negative (Negative) Urine Glucose (UA) Negative (Negative) Urine Ketones Negative (Negative) Urine Blood Negative (Negative) Urine Nitrite Negative (Negative) Urine Bilirubin Negative (Negative) Urine Urobilinogen <2.0 (<2.0) mg/dL Ur Leukocyte Esterase Moderate H (Negative) Urine RBC 1 (0-5) /hpf Urine WBC 4 (0-5) /hpf Ur Squamous Epith Cells 1 (0-4) /hpf Urine Mucus Rare H (None) /hpf Urine HCG, Qual Not Detected (Not Detectd) 02/19/19 02/19/19 Range/Units 07:04 07:04 WBC (3.8-10.6) k/uL RBC (3.80-5.40) m/uL Hgb (11.4-16.0) gm/dL Hct (34.0-46.0) % MCV (80.0-100.0) fL MCH (25.0-35.0) pg MCHC (31.0-37.0) g/dL RDW (11.5-15.5) % Plt Count (150-450) k/uL Neutrophils % % Lymphocytes % % Monocytes % % Eosinophils % % Basophils % % Neutrophils # (1.3-7.7) k/uL Lymphocytes # (1.0-4.8) k/uL Monocytes # (0-1.0) k/uL Eosinophils # (0-0.7) k/uL Basophils # (0-0.2) k/uL Sodium 140 (137-145) mmol/L Potassium 5.6 H (3.5-5.1) mmol/L Chloride 109 H (98-107) mmol/L Carbon Dioxide 19 L (22-30) mmol/L Anion Gap 12 mmol/L BUN 16 (7-17) mg/dL Creatinine 0.80 (0.52-1.04) mg/dL Est GFR (CKD-EPI)AfAm >90 (>60 ml/min/1.73 sqM) Est GFR (CKD-EPI)NonAf >90 (>60 ml/min/1.73 sqM) Glucose 90 (74-99) mg/dL Plasma Lactic Acid Reji 1.0 (0.7-2.0) mmol/L Calcium 9.7 (8.4-10.2) mg/dL Total Bilirubin 0.8 (0.2-1.3) mg/dL AST 36 (14-36) U/L ALT 19 (9-52) U/L Alkaline Phosphatase 51 (38-126) U/L Total Protein 7.7 (6.3-8.2) g/dL Albumin 3.9 (3.5-5.0) g/dL Lipase 111 (23-300) U/L Urine Color Urine Appearance (Clear) Urine pH (5.0-8.0) Ur Specific [place] (1.001-1.035) Urine Protein (Negative) Urine Glucose (UA) (Negative) Urine Ketones (Negative) Urine Blood (Negative) Urine Nitrite (Negative) Urine Bilirubin (Negative) Urine Urobilinogen (<2.0) mg/dL Ur Leukocyte Esterase (Negative) Urine RBC (0-5) /hpf Urine WBC (0-5) /hpf Ur Squamous Epith Cells (0-4) /hpf Urine Mucus (None) /hpf Urine HCG, Qual (Not Detectd) Disposition Clinical Impression: Abdominal pain, Biliary colic Disposition: HOME SELF-CARE Condition: Stable Instructions (If sedation given, give patient instructions): Abdominal Pain (ED) Additional Instructions: Please return to the Emergency Department if symptoms worsen or any other concerns. Is patient prescribed a controlled substance at d/c from ED?: No Referrals: Roberto Carrillo MD [Primary Care Provider] - 1-2 days Sameer Zarate MD [Medical Doctor] - 1-2 days Time of Disposition: 07:52
[2019-02-19 07:10] LABS: Appearance,Urine Clear (Clear); Bilirubin,Urine Negative (Negative); Blood,Urine Negative (Negative); Color,Urine Yellow; Glucose,Urine (UA) Negative (Negative); Ketones,Urine Negative (Negative); Leukocyte Esterase,Urine Moderate (Negative); Mucus,Urine Rare /hpf; Nitrite,Urine Negative (Negative); Protein,Urine Negative (Negative); RBC,Urine 1 /hpf (0-5); Specific Gravity,Urine 1.023 (1.001-1.035); Squamous Epithelial Cell,Urine 1 /hpf (0-4); Urobilinogen,Urine <2.0 mg/dL (<2.0)
[2019-02-19 07:30] LABS: Basophils # (A) 0.3 k/uL (0-0.2); Basophils % (A) 2 %; Eosinophils # (A) 0.5 k/uL (0-0.7); Eosinophils % (A) 3 %; HCT 40.9 % (34.0-46.0); HGB 13.8 gm/dL (11.4-16.0); Lymphocytes # (A) 2.1 k/uL (1.0-4.8); Lymphocytes % (A) 14 %; MCH 31.8 pg (25.0-35.0); MCHC 33.7 g/dL (31.0-37.0); MCV 94.3 fL (80.0-100.0); Mean Platelet Volume 7.4; Monocytes # (A) 0.7 k/uL (0-1.0); Monocytes % (A) 5 %; Neutrophils # (A) 11.3 k/uL (1.3-7.7); Neutrophils % (A) 75 %; Platelet Count 302 k/uL (150-450); RBC 4.33 m/uL (3.80-5.40)
[2019-02-19 07:33] LABS: ALT 19 U/L (9-52); AST 36 U/L (14-36); African American GFR (CKD) >90 (>60 ml/min/1.73 sqM); Albumin 3.9 g/dL (3.5-5.0); Alkaline Phosphatase 51 U/L (38-126); Anion Gap 12 mmol/L; Blood Urea Nitrogen 16 mg/dL (7-17); Calcium 9.7 mg/dL (8.4-10.2); Carbon Dioxide 19 mmol/L (22-30); Chloride 109 mmol/L (98-107); Glucose 90 mg/dL (74-99); Sodium 140 mmol/L (137-145); Total Bilirubin 0.8 mg/dL (0.2-1.3); Total Protein 7.7 g/dL (6.3-8.2)
[2019-02-19 07:37] LABS: Potassium 5.6 mmol/L (3.5-5.1)
--- NOTE | 2019-02-19 07:42 | US ---
EXAMINATION TYPE: US abdomen limited DATE OF EXAM: 02/19/2019 COMPARISON: NONE CLINICAL HISTORY: RUQ pain. EXAM MEASUREMENTS: Liver Length: 16.1 cm Gallbladder Wall: 0.3cm CBD: 0.3 cm Right Kidney: 10.7 x 3.6 x 5.8 cm Pancreas: wnl Liver: wnl Gallbladder: No stones seen, appears contracted. Patient states she has not eaten since 8 pm last ni ght. Evidence for sonographic Manrique's sign: Yes CBD: wnl Right Kidney: No hydronephrosis or masses seen IMPRESSION: Gallbladder is contracted without sonographic evidence of acute cholecystitis. The patien t does describe a positive sonographic Manrique sign and therefore HIDA scan could be considered to v[place] for cholecystitis if clinical exam and laboratory values are fitting.
[2019-02-19] MEDS ORDERED: ACET/COD 300 MG/30 MG STARTER PACK 6 TAB BTL PO STA (07:53)
[2019-02-19] MEDS ORDERED: ONDANSETRON ODT 4 MG TAB PO STA (07:53)
== END 2019-02-19 08:04 | disposition home or self-care (01) ==
LOC: EC 06:19
DX: K80.50 Calculus of bile duct without cholangitis or cholecystitis without obstruction (principal); F17.200 Nicotine dependence, unspecified, uncomplicated; Z88.2 Allergy status to sulfonamides
CPT/HCPCS: 36415; 80053; 83605; 83690; 85025; 81001; 81025; 76705; 99284; 96374; 96375; J2405; J1170

== ENCOUNTER 2019-05-03 19:28 | Emergency (ER) | payer OTHER ==
[2019-05-03 19:45] VITALS: RESP 18; TEMP 99.5
[2019-05-03 21:00] LABS: Basophils # (A) 0.1 k/uL (0-0.2); Basophils % (A) 1 %; Eosinophils # (A) 0.4 k/uL (0-0.7); Eosinophils % (A) 3 %; HCT 42.7 % (34.0-46.0); HGB 14.6 gm/dL (11.4-16.0); Lymphocytes # (A) 2.7 k/uL (1.0-4.8); Lymphocytes % (A) 21 %; MCH 31.7 pg (25.0-35.0); MCHC 34.1 g/dL (31.0-37.0); MCV 92.9 fL (80.0-100.0); Mean Platelet Volume 7.5; Monocytes # (A) 0.3 k/uL (0-1.0); Monocytes % (A) 3 %; Neutrophils # (A) 8.9 k/uL (1.3-7.7); Neutrophils % (A) 72 %; Platelet Count 279 k/uL (150-450); WBC 12.4 k/uL (3.8-10.6)
[2019-05-03 21:01] LABS: Appearance,Urine Clear (Clear); Bilirubin,Urine Negative (Negative); Blood,Urine Negative (Negative); Color,Urine Colorless; Glucose,Urine (UA) Negative (Negative); Ketones,Urine Negative (Negative); Leukocyte Esterase,Urine Negative (Negative); Nitrite,Urine Negative (Negative); PH, Urine 6.5 (5.0-8.0); Protein,Urine Negative (Negative); Specific Gravity,Urine 1.002 (1.001-1.035); Urobilinogen,Urine <2.0 mg/dL (<2.0)
[2019-05-03 21:08] LABS: ALT 15 U/L (4-34); AST 21 U/L (14-36); African American GFR (CKD) >90 (>60 ml/min/1.73 sqM); Albumin 4.5 g/dL (3.5-5.0); Alkaline Phosphatase 70 U/L (38-126); Amylase 72 U/L (30-110); Anion Gap 9 mmol/L; Blood Urea Nitrogen 13 mg/dL (7-17); Calcium 9.8 mg/dL (8.4-10.2); Carbon Dioxide 26 mmol/L (22-30); Chloride 105 mmol/L (98-107); Glucose 130 mg/dL (74-99); Non-African American GFR(CKD) 81 (>60 ml/min/1.73 sqM); Potassium 4.2 mmol/L (3.5-5.1); Sodium 140 mmol/L (137-145); Total Bilirubin 0.3 mg/dL (0.2-1.3); Total Protein 7.8 g/dL (6.3-8.2)
--- NOTE | 2019-05-03 21:26 | ED ---
General Adult HPI - General Chief complaint: Abdominal Pain Stated complaint: Abd Pain Time Seen by Provider: 05/03/19 20:02 Source: patient, RN notes reviewed Mode of arrival: ambulatory Limitations: no limitations - History of Present Illness Initial comments: 28-year-old female with a past medical history of asthma presents to the emergency department for a chief complaint of upper abdominal pain. Patient states this started 3 days ago. Patient has had this pain several times before but it has always resolved. Patient states that eating worsens the pain. She is nauseous but has not had any vomiting. States she has been told it is related to her gallbladder but she did not have insurance to get it further evaluated. She denies any fevers or chills. She denies any lower abdominal pain.Patient has no other complaints at this time including shortness of breath, chest pain, abdominal pain, nausea or vomiting, headache, or visual changes. - Related Data Home Medications Medication Instructions Recorded Confirmed Oqd-Rmhv-Uhine Acid 1 cap PO DAILY 11/20/17 04/15/18 [-U Capsule (formulary)] Previous Rx's Medication Instructions Recorded Ibuprofen [Motrin] 600 mg PO Q6HR PRN #30 tab 04/17/18 Famotidine [Pepcid] 20 mg PO BID #14 tablet 05/03/19 Allergies Allergy/AdvReac Type Severity Reaction Status Date / Time Sulfa (Sulfonamide Allergy Rash/Hives Verified 05/03/19 19:44 Antibiotics) Review of Systems ROS Statement: Those systems with pertinent positive or pertinent negative responses have been documented in the HPI. ROS Other: All systems not noted in ROS Statement are negative. Past Medical History Past Medical History: Asthma Additional Past Medical History / Comment(s): scoliosis History of Any Multi-Drug Resistant Organisms: None Reported Past Surgical History: No Surgical Hx Reported Additional Past Surgical History / Comment(s): wisdom teeth removed Past Anesthesia/Blood Transfusion Reactions: No Reported Reaction Past Psychological History: Depression Smoking Status: Current every day smoker Past Alcohol Use History: Occasional Past Drug Use History: None Reported - Past Family History Mother Family Medical History: COPD Additional Family Medical History / Comment(s): Depression General Exam Limitations: no limitations General appearance: alert, in no apparent distress Head exam: Present: atraumatic, normocephalic, normal inspection Eye exam: Present: normal appearance, PERRL, EOMI. Absent: scleral icterus, conjunctival injection, periorbital swelling ENT exam: Present: normal exam, mucous membranes moist Neck exam: Present: normal inspection, full ROM. Absent: tenderness, meningi smus, lymphadenopathy Respiratory exam: Present: normal lung sounds bilaterally. Absent: respiratory distress, wheezes, rales, rhonchi, stridor Cardiovascular Exam: Present: regular rate, normal rhythm, normal heart sounds. Absent: systolic murmur, diastolic murmur, rubs, gallop, clicks GI/Abdominal exam: Present: soft, tenderness (mild right upper quadrant tenderness without guarding, negative Manrique sign. No lower abdominal tenderness or left upper quadrant tenderness.), normal bowel sounds. Absent: distended, guarding, rebound, rigid Neurological exam: Present: alert Course Vital Signs 05/03/19 19:44 Temperature 99.5 F Pulse Rate 100 Respiratory 18 Rate Blood Pressure 151/95 O2 Sat by Pulse 98 Oximetry Medical Decision Making - Medical Decision Making Patient presents with right upper quadrant epigastric pain. This is been ongoing for the past 3 days. CBC shows a mild acidosis of 12.4. CMP unremarkable. This is negative. Ultrasound of the right upper quadrant was negative. No gallstones or dilated ducts. I reevaluated patient and she did have some right lower quadrant pain radiating to the back as well. Therefore CT was ordered to rule out appendicitis which shows a negative exam. Patient feeling much better at this time after given pain medication. She'll follow up with general surgery. She'll be put on Pepcid given possible gastritis. She'll return if she has any worsening symptoms. - Lab Data Result diagrams: 05/03/19 20:49 05/03/19 20:49 Lab Results 05/03/19 05/03/19 05/03/19 Range/Units 20:49 20:49 20:49 WBC 12.4 H (3.8-10.6) k/uL RBC 4.60 (3.80-5.40) m/uL Hgb 14.6 (11.4-16.0) gm/dL Hct 42.7 (34.0-46.0) % MCV 92.9 (80.0-100.0) fL MCH 31.7 (25.0-35.0) pg MCHC 34.1 (31.0-37.0) g/dL RDW 13.0 (11.5-15.5) % Plt Count 279 (150-450) k/uL Neutrophils % 72 % Lymphocytes % 21 % Monocytes % 3 % Eosinophils % 3 % Basophils % 1 % Neutrophils # 8.9 H (1.3-7.7) k/uL Lymphocytes # 2.7 (1.0-4.8) k/uL Monocytes # 0.3 (0-1.0) k/uL Eosinophils # 0.4 (0-0.7) k/uL Basophils # 0.1 (0-0.2) k/uL Sodium 140 (137-145) mmol/L Potassium 4.2 (3.5-5.1) mmol/L Chloride 105 (98-107) mmol/L Carbon Dioxide 26 (22-30) mmol/L Anion Gap 9 mmol/L BUN 13 (7-17) mg/dL Creatinine 0.97 (0.52-1.04) mg/dL Est GFR (CKD-EPI)AfAm >90 (>60 ml/min/1.73 sqM) Est GFR (CKD-EPI)NonAf 81 (>60 ml/min/1.73 sqM) Glucose 130 H (74-99) mg/dL Calcium 9.8 (8.4-10.2) mg/dL Total Bilirubin 0.3 (0.2-1.3) mg/dL AST 21 (14-36) U/L ALT 15 (4-34) U/L Alkaline Phosphatase 70 (38-126) U/L Total Protein 7.8 (6.3-8.2) g/dL Albumin 4.5 (3.5-5.0) g/dL Amylase 72 (30-110) U/L Lipase 56 (23-300) U/L Urine Color Colorless Urine Appearance Clear (Clear) Urine pH 6.5 (5.0-8.0) Ur Specific [place] 1.002 (1.001-1.035) Urine Protein Negative (Negative) Urine Glucose (UA) Negative (Negative) Urine Ketones Negative (Negative) Urine Blood Negative (Negative) Urine Nitrite Negative (Negative) Urine Bilirubin Negative (Negative) Urine Urobilinogen <2.0 (<2.0) mg/dL Ur Leukocyte Esterase Negative (Negative) Urine HCG, Qual (Not Detectd) 05/03/19 Range/Units 20:49 WBC (3.8-10.6) k/uL RBC (3.80-5.40) m/uL Hgb (11.4-16.0) gm/dL Hct (34.0-46.0) % MCV (80.0-100.0) fL MCH (25.0-35.0) pg MCHC (31.0-37.0) g/dL RDW (11.5-15.5) % Plt Count (150-450) k/uL Neutrophils % % Lymphocytes % % Monocytes % % Eosinophils % % Basophils % % Neutrophils # (1.3-7.7) k/uL Lymphocytes # (1.0-4.8) k/uL Monocytes # (0-1.0) k/uL Eosinophils # (0-0.7) k/uL Basophils # (0-0.2) k/uL Sodium (137-145) mmol/L Potassium (3.5-5.1) mmol/L Chloride (98-107) mmol/L Carbon Dioxide (22-30) mmol/L Anion Gap mmol/L BUN (7-17) mg/dL Creatinine (0.52-1.04) mg/dL Est GFR (CKD-EPI)AfAm (>60 ml/min/1.73 sqM) Est GFR (CKD-EPI)NonAf (>60 ml/min/1.73 sqM) Glucose (74-99) mg/dL Calcium (8.4-10.2) mg/dL Total Bilirubin (0.2-1.3) mg/dL AST (14-36) U/L ALT (4-34) U/L Alkaline Phosphatase (38-126) U/L Total Protein (6.3-8.2) g/dL Albumin (3.5-5.0) g/dL Amylase (30-110) U/L Lipase (23-300) U/L Urine Color Urine Appearance (Clear) Urine pH (5.0-8.0) Ur Specific [place] (1.001-1.035) Urine Protein (Negative) Urine Glucose (UA) (Negative) Urine Ketones (Negative) Urine Blood (Negative) Urine Nitrite (Negative) Urine Bilirubin (Negative) Urine Urobilinogen (<2.0) mg/dL Ur Leukocyte Esterase (Negative) Urine HCG, Qual Not Detected (Not Detectd) Disposition Clinical Impression: Abdominal pain Disposition: HOME SELF-CARE Condition: Good Instructions (If sedation given, give patient instructions): Abdominal Pain (ED) Additional Instructions: please take Pepcid as directed. Follow-up with primary care or surgery in 1-2 days. If you have any worsening symptoms return to the emergency department. Prescriptions: Famotidine [Pepcid] 20 mg PO BID #14 tablet Is patient prescribed a controlled substance at d/c from ED?: No Referrals: Roberto Carrillo MD [Primary Care Provider] - 1-2 days Joey Lobato MD [STAFF PHYSICIAN] - 1-2 days Time of Disposition: 23:43
--- NOTE | 2019-05-03 21:57 | US ---
EXAMINATION TYPE: US abdomen limited DATE OF EXAM: 05/03/2019 COMPARISON: US 2019 CLINICAL HISTORY: RUQ. RUQ pain x 2 days. Nausea. EXAM MEASUREMENTS: Liver Length: 15.4 cm Gallbladder Wall: 0.20 cm CBD: 0.43 cm Right Kidney: 10.4 x 5.3 x 4.1 cm *Patient gassy. Pancreas: Appears to be wnl Liver: Appears to be wnl Gallbladder: Fold seen. Appears anechoic. Evidence for sonographic Manrique's sign: Patient claims the pain is in the epigastric area and radi ates to the right side. CBD: Appears to be wnl. Right Kidney: No hydronephrosis or masses seen IMPRESSION: Negative exam. No gallstones or dilated ducts.
[2019-05-03] MEDS ORDERED: KETOROLAC 30 MG/ML 1 ML VIAL IVP STA (22:37)
--- NOTE | 2019-05-03 23:31 | CT ---
EXAMINATION TYPE: CT abdomen pelvis w con DATE OF EXAM: 05/03/2019 COMPARISON: None HISTORY: Right flank pain CT DLP: 837.7 mGycm Automated exposure control for dose reduction was used. CONTRAST: Performed with IV Contrast, patient injected with 100 mL of Isovue 300. Multiple axial sections were obtained from the diaphragm to the floor the pelvis with intravenous con trast. Lung bases are clear of infiltrate. There is no pleural effusion. Heart size is normal. Liver spleen pancreas gallbladder stomach appear normal. Bile ducts are not dilated. There is no adrenal mass. Kidneys show satisfactory contrast opacification. There is no hydronephrosi s. Ureters are not dilated. There is no retroperitoneal adenopathy. Delayed images show normal renal excretion. Bladder distends smoothly. There is no inguinal hernia. Uterus is anteverted. There is 2 c m cyst on the right ovary. There is no free fluid in the pelvis. There is no mesenteric edema. There is no ascites or free air. Appendix appears normal. Lumbar vertebra have normal spacing and alignment. Posterior elements are intact. Bony pelvis is inta ct. There is no evidence of a fracture. There is no evidence of a bowel obstruction. IMPRESSION: Negative CT scan abdomen and pelvis. No renal stone or obstruction. Normal appendix. Right ovarian cy st.
[2019-05-03 23:55] VITALS: BP 114/61; PULSE 66
== END 2019-05-04 | disposition home or self-care (01) ==
LOC: EC 19:28
DX: R10.11 Right upper quadrant pain (principal); R10.13 Epigastric pain; E87.2 Acidosis; R10.31 Right lower quadrant pain; M54.9 Dorsalgia, unspecified; R11.0 Nausea; F17.200 Nicotine dependence, unspecified, uncomplicated; Z88.2 Allergy status to sulfonamides
CPT/HCPCS: 36415; 80053; 82150; 83690; 85025; 81003; 81025; 76705; 74177; 99284; 96374; J1885; Q9967

== ENCOUNTER → 2019-05-15 | Outpatient (CLI) | payer OTHER ==
--- NOTE | 2019-05-15 15:50 | NM ---
EXAMINATION TYPE: NM hepatobiliary wo EF DATE OF EXAM: 05/15/2019 COMPARISON: NONE HISTORY: Abdominal pain TECHNIQUE: After the intravenous administration of 4.9 mCi Tc 99m Mebrofenin hepatobiliary scintigrap hy is performed. Immediate images post injection. FINDINGS: There is prompt uptake of the tracer by the liver that has normal size and contour. There is no focal liver defect. There is tracer in the small bowel at 5 minutes. Images were obtained up to 2 hours that shows clearing of the tracer from the liver. Tracers in the s mall bowel and there is no evidence of any activity in the gallbladder. The remainder of exam is unre markable. IMPRESSION: There is nonvisualization of the gallbladder consistent with acute cholecystitis and cyst ic duct obstruction. No focal liver defect.
== END | disposition home or self-care (01) ==
LOC: RADNMMAIN 12:00
PROVIDERS: ATTEND Surgery
DX: K81.0 Acute cholecystitis (principal); K82.0 Obstruction of gallbladder; Z88.2 Allergy status to sulfonamides
CPT/HCPCS: 78226; A9537

== ENCOUNTER 2019-10-28 17:31 | Emergency (ER) | payer OTHER ==
[2019-10-28 17:58] VITALS: BP 132/72; PULSE 76; RESP 16; TEMP 98.9
--- NOTE | 2019-10-28 18:32 | XR ---
PROCEDURE: XR ankle complete RT - 3V DATE AND TIME: 10/28/2019 6:23 PM CLINICAL INDICATION: pain and swelling post injury TECHNIQUE: Department protocol COMPARISON: None FINDINGS: There is pes planus. There is no fracture or malalignment. The soft tissues are unremarkabl e. IMPRESSION: NO ACUTE PROCESS.
--- NOTE | 2019-10-28 18:33 | XR ---
PROCEDURE: XR foot complete RT - 3V DATE AND TIME: 10/28/2019 6:23 PM CLINICAL INDICATION: PHH; swelling and pain post injury TECHNIQUE: Department protocol COMPARISON: None FINDINGS: There is no fracture or malalignment. The soft tissues are unremarkable. IMPRESSION: NO ACUTE PROCESS.
--- NOTE | 2019-10-28 18:39 | ED ---
Lower Extremity Injury HPI - General Chief Complaint: Extremity Injury, Lower Stated Complaint: Ankle injury Time Seen by Provider: 10/28/19 18:02 Source: patient Mode of arrival: ambulatory Limitations: no limitations - History of Present Illness Initial Comments: 29-year-old male presenting today for chief complaint of right ankle pain. Patient states that she kicked a dog dish the night before. After accidentally kicking it she became angry and kicked it intentionally with the same foot. Patient states she has proximal foot and ankle pain. Patient denies bruising or significant swelling. Able to weight bear but with pain. Denies distal or forefoot pain. Denies numbness, or loss of sensation, denies fall trauma to head neck or UE. No additional complaints. Patient appears well on arrival. - Related Data Home Medications Medication Instructions Recorded Confirmed Jta-Qont-Ipzoh Acid 1 cap PO DAILY 11/20/17 04/15/18 [-U Capsule (formulary)] Previous Rx's Medication Instructions Recorded Ibuprofen [Motrin] 600 mg PO Q6HR PRN #30 tab 04/17/18 Famotidine [Pepcid] 20 mg PO BID #14 tablet 05/03/19 Allergies Allergy/AdvReac Type Severity Reaction Status Date / Time Sulfa (Sulfonamide Allergy Rash/Hives Verified 10/28/19 17:58 Antibiotics) Review of Systems ROS Statement: Those systems with pertinent positive or pertinent negative responses have been documented in the HPI. ROS Other: All systems not noted in ROS Statement are negative. Past Medical History Past Medical History: Asthma Additional Past Medical History / Comment(s): scoliosis History of Any Multi-Drug Resistant Organisms: None Reported Past Surgical History: No Surgical Hx Reported Additional Past Surgical History / Comment(s): wisdom teeth removed Past Anesthesia/Blood Transfusion Reactions: No Reported Reaction Past Psychological History: Depression Smoking Status: Current every day smoker Past Alcohol Use History: Occasional Past Drug Use History: None Reported - Past Family History Mother Family Medical History: COPD Additional Family Medical History / Comment(s): Depression General Exam - General Exam Comments Initial Comments: General: The patient is awake and alert, in no distress Eye: Pupils are equal, round and reactive to light, extra-ocular movements are intact. No nystagmus. There is normal conjunctiva bilaterally. No signs of icterus. . Cardiovascular: There is a regular rate and rhythm. No murmur, rub or gallop is appreciated. Respiratory: Lungs are clear to auscultation, respirations are non-labored, breath sounds are equal. No wheezes, stridor, rales, or rhonchi. Gastrointestinal: Soft, non-distended, non-tender abdomen without masses or organomegaly noted. There is no rebound or guarding present. Musculoskeletal: Normal ROM, with tenderness at right foot and ankle, full ROM without tenderness, knees, left LE. Strength 5/5 of the LE b/l. Sensation intact of the LE b/l. Radial and DP pulses equal bilaterally 2+. Neurological: A&O x 3. CN II-XII intact grossly, There are no obvious motor or sensory deficits. Coordination appears grossly intact. Speech is normal. Skin: Skin is warm and dry and no rashes or lesions are noted. Psychiatric: Cooperative, appropriate mood & affect, normal judgment. Limitations: no limitations Course Vital Signs 10/28/19 17:55 Temperature 98.9 F Pulse Rate 76 Respiratory 16 Rate Blood Pressure 132/72 O2 Sat by Pulse 98 Oximetry Medical Decision Making - Medical Decision Making 29yo male presenting today for cc of foot/ankle pain. XR (-) for pain in the area of lis franc. No bruising on the dorsum or plantar aspect of the foot. Patient neurovascularly intact. Patient will be discharged wt PCP f/u and rice instruction. Disposition Clinical Impression: Ankle pain, Foot pain Disposition: HOME SELF-CARE Condition: Good Instructions (If sedation given, give patient instructions): Ankle Sprain (ED), Foot Sprain (ED) Additional Instructions: Please use medication as discussed. Please follow-up with family doctor in the next 2 days. Please return to emergency room if the symptoms increase or worsen or for any other concerns. Is patient prescribed a controlled substance at d/c from ED?: No Referrals: Roberto Carrillo MD [Primary Care Provider] - 1-2 days Time of Disposition: 18:39
== END 2019-10-28 19:09 | disposition home or self-care (01) ==
LOC: EC 17:31
DX: M79.671 Pain in right foot (principal); M25.571 Pain in right ankle and joints of right foot; F17.200 Nicotine dependence, unspecified, uncomplicated; Z88.2 Allergy status to sulfonamides; W22.8XXA Striking against or struck by other objects, initial encounter
CPT/HCPCS: 99283

== ENCOUNTER → 2021-06-12 | Outpatient (CLI) | payer OTHER | END | disposition home or self-care (01) | LOC: LABWHC1 12:12 | PROVIDERS: ATTEND Family Medicine | DX: U07.1 COVID-19 (principal) | CPT/HCPCS: U0003; C9803 ==

== ENCOUNTER → 2021-07-12 | Outpatient (CLI) | payer OTHER ==
--- NOTE | 2021-07-13 11:02 | NM ---
EXAMINATION TYPE: NM hepatobiliary w EF DATE OF EXAM: 07/12/2021 COMPARISON: Prior exam 05/15/2019 HISTORY: Right upper quadrant pain, R 10.11 TECHNIQUE: After the intravenous administration of 3.92 mCi Tc 99m Mebrofenin hepatobiliary scintigra phy is performed. Immediate images post injection. FINDINGS: There is satisfactory initial accumulation of tracer by the liver. The gallbladder is visualized at 3 hours. The small bowel activity is noted within one minute. At one hour 8 ounces of oral ensure p alice is given to mimic CCK and gallbladder ejection fraction is calculated at 42 %, in the normal rang e. Therefore there is no scintigraphic evidence of cystic or common bile duct obstruction to suggest acute cholecystitis. IMPRESSION: Delayed visualization of the gallbladder can be seen in chronic cholecystitis, gallbladde r ejection fraction however is calculated to be within normal limits.
== END | disposition home or self-care (01) ==
LOC: RADNMMAIN 12:52
PROVIDERS: ATTEND Family Medicine
DX: R10.11 Right upper quadrant pain (principal)
CPT/HCPCS: 78226; A9537

== ENCOUNTER 2021-08-31 11:25 | Day surgery (SDC) | payer OTHER ==
[2021-08-29 11:41] VITALS: BMI 35.4
[2021-08-31 11:41] VITALS: RESP 16; TEMP 97.2
[2021-08-31] MEDS ORDERED: LACTATED RINGERS 1,000 ML IV ONE (11:41)
[2021-08-31] MEDS ORDERED: LIDOCAINE 1% INJ 10MG/ML (20 ML MDV) ONE (11:45)
[2021-08-31] MEDS ORDERED: PROPOFOL 10 MG/ML 20 ML VIAL IV ONE (11:45)
--- NOTE | 2021-08-31 12:22 | P.PCN ---
Date of Procedure: 08/31/21 Preoperative Diagnosis: Epigastric pain, heartburn, diarrhea, nausea Postoperative Diagnosis: Epigastric pain, heartburn, diarrhea, nausea Procedure(s) Performed: EGD and colonoscopy with biopsies Anesthesia: MAC Surgeon: Autumn Perry Pathology: other Condition: stable Disposition: PACU Description of Procedure: Patient is a 31-year-old female that is had abdominal pain and heartburn/indigestion for several years. She's had diarrhea 6-8 times a day for about the last 6 months. She's taken to the endoscopy suite were gastroscope is passed from up to the third and fourth portions of the duodenum. The pharynx is unremarkable. The esophagus is without evidence of esophagitis or mass lesions. GE junction is without inflammatory change. The stomach pylorus and duodenum otherwise without evidence of polyp, mass lesion or other mucosal pattern of the duodenum appeared normal. Cold biopsies were obtained in the antrum to rule out H. pylori. Cold biopsies were obtained in the esophagus to rule out reflux esophagitis or esophagitis. She is then repositioned in a colonoscope is passed per rectum and terminal ileum. She has a good prep. In the terminal ileum there is a small area where the mucosa appeared erythematous. Multiple cold biopsies were obtained. The colon was without evidence of polyp, mass lesion, ulcer or other mucosal abnormality. Cold biopsies were obtained to rule out microscopic colitis. She tolerated the procedure without difficulty and was taken recovery room in satisfactory condition. We'll call with the report of the biopsies and have further recommendations to follow. Plan - Discharge Summary Discharge Rx Participant: No New Discharge Prescriptions: No Action No Known Home Medications Discharge Medication List No Known Home Medications 08/29/21 [History] Activity/Diet/Wound Care/Special Instructions: No driving today. We will call from the office next week and let you know what the follow-up should be Discharge Disposition: HOME SELF-CARE
[2021-08-31 14:33] VITALS: BP 111/76; PULSE 69
== END 2021-08-31 13:00 | disposition home or self-care (01) ==
LOC: ORWHC2ENDO 11:25
PROVIDERS: ATTEND Surgery
DX: K29.70 Gastritis, unspecified, without bleeding (principal); F17.200 Nicotine dependence, unspecified, uncomplicated; Z88.2 Allergy status to sulfonamides
CPT/HCPCS: 45380; 43239; 81025; 88305; 88342; J2001; J2704

== ENCOUNTER 2021-09-28 11:48 | Day surgery (SDC) | payer OTHER ==
[2021-09-26 15:02] VITALS: BMI 35.4
[~2021-09-28 11:48] MED LIST: DEXAMETHASONE SOD PHOSPHATE 4 MG/ML 1 ML VIAL IV ONE; HYDROmorphone 0.5 MG/0.5 ML SYRINGE IVP PRN; LACTATED RINGERS 1,000 ML IV SCH; LIDOCAINE 1% (10MG/ML) FOR IV START INTRADERMA PRN
[2021-09-28] MEDS ORDERED: ONDANSETRON 4 MG/2 ML VIAL ONE (12:19)
[2021-09-28] MEDS ORDERED: ROCURONIUM 10 MG/ML (5 ML VIAL) IV ONE (13:18)
[2021-09-28] MEDS ORDERED: MIDAZOLAM 2 MG/2 ML VIAL ONE (13:18)
[2021-09-28] MEDS ORDERED: fentaNYL (PF) 50 MCG/ML 2 ML AMP ONE (13:18)
[2021-09-28] MEDS ORDERED: SUCCINYLCHOLINE CHLORIDE 100 MG/5 ML SYR IV ONE (13:18)
[2021-09-28] MEDS ORDERED: KETOROLAC 15 MG/ML 1 ML VIAL ONE (13:18)
[2021-09-28] MEDS ORDERED: HYDROmorphone (PF) 1 MG/ML ONE (13:18)
[2021-09-28] MEDS ORDERED: LIDOCAINE 2% INJ 20 MG/ML (2 ML VIAL) ONE (13:18)
[2021-09-28] MEDS ORDERED: GLYCOPYRROLATE 0.2 MG/ML 2 ML VIAL ONE (13:18)
[2021-09-28] MEDS ORDERED: PROPOFOL 10 MG/ML 20 ML VIAL IV ONE (13:18)
[2021-09-28] MEDS ORDERED: NEOSTIGMINE 1 MG/ML 10 ML VIAL ONE (13:18)
[2021-09-28] MEDS ORDERED: LIDOCAINE 1%-EPI 1:100,000 20 ML VIAL SQ ONE (13:23)
[2021-09-28] MEDS ORDERED: BUPIVACAINE (PF) 0.25% 30 ML VIAL SQ ONE (13:23)
--- NOTE | 2021-09-28 14:16 | P.OP ---
Date of Procedure: 09/28/21 Preoperative Diagnosis: Abdominal pain, abnormal HIDA scan Postoperative Diagnosis: Abdominal pain, abnormal HIDA scan Procedure(s) Performed: Laparoscopic cholecystectomy Anesthesia: JANELL Surgeon: Autumn Perry Pathology: other Condition: stable Disposition: PACU Description of Procedure: The patient has had persistent abdominal pain. She's had an extensive workup including ultrasounds, HIDA scan and endoscopy. There was no evidence of decreased ejection fraction on HIDA scan however both of those showed markedly delayed filling so she presents for laparoscopic cholecystectomy. She's taken the OR where she is prepped and draped in the usual sterile manner under a general endotracheal anesthetic. An infraumbilical incision was made and a Veress needle was placed into the abdominal cavity. Pneumoperitoneum was established with CO2 gas. Sites are chosen for trochars and these are placed through small skin incisions. She has a few filmy adhesions from the diaphragm to the top of the liver. Otherwise the liver, diaphragm, large and small bowel were all normal where they were seen. The fundus of the gallbladder is grasped and retracted superiorly. Gissell's pouch is class and retracted laterally. The cystic artery and cystic duct are dissected free. They are triply clipped and cut. The bladder is then dissected free from the liver bed and its removed through the umbilical port site. The liver bed is reexamined and noted to be hemostatic. The pneumoperitoneum was released. The trochars were removed. The fascia at the umbilicus was closed with 0 Vicryl. The skin incisions were closed with 4-0 Vicryl in a subcuticular manner. Steri-Strips and dressings were applied. She tolerated the procedure without difficulty and was taken to recovery room in satisfactory condition. According to or personnel, all counts were correct. Plan - Discharge Summary Discharge Rx Participant: No New Discharge Prescriptions: New HYDROcodone/APAP 5-325MG [[place] 5-325] 1 - 2 tab PO Q6HR PRN #15 tab PRN Reason: Pain Discharge Medication List HYDROcodone/APAP 5-325MG [[place] 5-325] 1 - 2 tab PO Q6HR PRN #15 tab 09/28/21 [Rx] Follow up Appointment(s)/Referral(s): Autumn Perry DO [Doctor of Osteopathic Medicine] - 2 Weeks Activity/Diet/Wound Care/Special Instructions: Ice to the incision for the next 1-2 days. Leave the Band-Aids on until Friday. The Band-Aids may then be removed and you may shower. Expect some bruising by the bellybutton. Follow a low-fat diet. No driving while taking pain medication. You may take Tylenol or Motrin instead of the pain pills. Call if questions or concerns Discharge Disposition: HOME SELF-CARE
[2021-09-28 14:30] VITALS: TEMP 97
[2021-09-28] MEDS ORDERED: LACTATED RINGERS 1,000 ML IV ONE (15:06)
[2021-09-28 15:16] VITALS: RESP 17
[2021-09-28] MEDS ORDERED: HYDROcodone/APAP 5-325MG 1 EACH TAB PO ONE (15:27)
[2021-09-28] MEDS ORDERED: HYDROcodone/APAP 5-325MG 1 EACH TAB ONE (15:27)
[2021-09-28 15:34] VITALS: BP 119/78; PULSE 71
== END 2021-09-28 16:11 | disposition home or self-care (01) ==
LOC: OR 11:48
PROVIDERS: ATTEND Surgery
DX: K80.10 Calculus of gallbladder with chronic cholecystitis without obstruction (principal)
CPT/HCPCS: 47562; 81025; 88304; J2250; J1100; J2710; J0690; J2405; J3010; J1170; J1885; J0330; J2704; J2001

== ENCOUNTER 2021-10-02 12:28 | Observation (INO) | payer OTHER ==
[2021-10-02] MEDS ORDERED: ONDANSETRON 4 MG/2 ML VIAL IVP STA (13:06)
[2021-10-02] MEDS ORDERED: SODIUM CHLORIDE 0.9% 1,000 ML IV STA (13:06)
[2021-10-02] MEDS ORDERED: HYDROmorphone 0.5 MG/0.5 ML SYRINGE IVP STA ×2 (13:06→15:07)
[2021-10-02 13:17] LABS: Basophils # (A) 0.1 k/uL (0-0.2); Basophils % (A) 1 %; Eosinophils # (A) 0.5 k/uL (0-0.7); Eosinophils % (A) 4 %; HCT 40.8 % (34.0-46.0); HGB 13.1 gm/dL (11.4-16.0); Lymphocytes # (A) 2.2 k/uL (1.0-4.8); Lymphocytes % (A) 16 %; MCH 30.8 pg (25.0-35.0); MCHC 32.2 g/dL (31.0-37.0); MCV 95.6 fL (80.0-100.0); Mean Platelet Volume 7.9; Monocytes # (A) 0.5 k/uL (0-1.0); Monocytes % (A) 4 %; Neutrophils # (A) 9.9 k/uL (1.3-7.7); Neutrophils % (A) 75 %; Platelet Count 281 k/uL (150-450); RBC 4.26 m/uL (3.80-5.40); RDW 13.2 % (11.5-15.5); WBC 13.1 k/uL (3.8-10.6)
--- NOTE | 2021-10-02 13:29 | ED ---
General Adult HPI - General Chief complaint: Abdominal Pain Stated complaint: Post Op Pain Time Seen by Provider: 10/02/21 12:47 Source: patient Mode of arrival: ambulatory Limitations: no limitations - History of Present Illness Initial comments: This 31-year-old female who had a recent laparoscopic cholecystectomy on Friday presents emergency Department with right upper and lower quadrant abdominal pain that began this morning at 9 AM. Patient states she was healing well and not experiencing very much pain up until this morning at 9 AM when she began to get sharp pain in the right side of her abdomen- patient states he was in between her right upper and right lower quadrants. Patient states she is also experiencing episodic right shoulder pain. Patient states she does feel a bit nauseous but denies any vomiting. She states she did take [place] 5mg which minimally helped her pain. She states the pain is sharp in nature and is constant. Patient rates her pain 10/10. Patient states she has been passing gas but denies having any bowel movement since her surgery on Friday. She denies any fever, shortness of breath, vomiting, change in urination. She denies any chest pain, shortness of breath, headache, lightheadedness, dizziness, change in vision, calf pain, rash. - Related Data Home Medications Medication Instructions Recorded Confirmed Docusate [Colace] 100 mg PO TID 10/02/21 10/02/21 Previous Rx's Medication Instructions Recorded HYDROcodone/APAP 5-325MG [[place] 1 - 2 tab PO Q6HR PRN #15 tab 09/28/21 5-325] Allergies Allergy/AdvReac Type Severity Reaction Status Date / Time Sulfa (Sulfonamide Allergy Rash/Hives Verified 10/02/21 13:43 Antibiotics) Review of Systems ROS Statement: Those systems with pertinent positive or pertinent negative responses have been documented in the HPI. ROS Other: All systems not noted in ROS Statement are negative. Past Medical History Past Medical History: Asthma Additional Past Medical History / Comment(s): scoliosis History of Any Multi-Drug Resistant Organisms: None Reported Past Surgical History: No Surgical Hx Reported Additional Past Surgical History / Comment(s): wisdom teeth removed. EGD/colonoscopy Past Anesthesia/Blood Transfusion Reactions: No Reported Reaction Past Psychological History: Depression Smoking Status: Current every day smoker Past Alcohol Use History: Occasional Past Drug Use History: None Reported - Past Family History Mother Family Medical History: COPD Additional Family Medical History / Comment(s): Depression General Exam Limitations: no limitations General appearance: alert, in no apparent distress Head exam: Present: atraumatic, normocephalic, normal inspection Eye exam: Present: normal appearance, PERRL, EOMI. Absent: scleral icterus, conjunctival injection, periorbital swelling Pupils: Present: normal accommodation ENT exam: Present: normal exam, mucous membranes moist Neck exam: Present: normal inspection, full ROM. Absent: tenderness, meningismus, lymphadenopathy Respiratory exam: Present: normal lung sounds bilaterally. Absent: respiratory distress, wheezes, rales, rhonchi, stridor, chest wall tenderness Cardiovascular Exam: Present: regular rate, normal rhythm, normal heart sounds. Absent: systolic murmur, diastolic murmur, rubs, gallop, clicks GI/Abdominal exam: Present: soft, tenderness (Tenderness to palpation in all quadrants, both right upper and right lower quadrants worse than left side), normal bowel sounds. Absent: distended, guarding, rebound, rigid Extremities exam: Present: normal inspection, full ROM, normal capillary refill. Absent: tenderness, pedal edema, joint swelling, calf tenderness Back exam: Present: full ROM, CVA tenderness (R). Absent: CVA tenderness (L), paraspinal tenderness, vertebral tenderness Neurological exam: Present: alert, oriented X3, CN II-XII intact Psychiatric exam: Present: normal affect, normal mood Skin exam: Present: warm, dry, intact, normal color. Absent: rash Course Vital Signs 10/02/21 12:37 Temperature 97.7 F Pulse Rate 66 Respiratory 18 Rate Blood Pressure 187/96 O2 Sat by Pulse 98 Oximetry - Reevaluation(s) Reevaluation #1: On reevaluation at 13:46, patient states her pain is still there. She states it has minimally subsided but is still at 7/10. Morphine given. On reevaluation at 14:51, patient states her pain is starting to come back a little bit worse than before and is currently at 8/10. Patient states her right lower quadrant is worse with sharp pains but states her constant pain is in her right upper quadrant. Dilaudid given. Medical Decision Making - Medical Decision Making This 31-year-old female presents to the emergency department after laparoscopic cholecystectomy 4 days ago complaining of right-sided abdominal pain.CT abdomen and pelvis with contrast impression: 5.54.5 cm right ovarian cyst this can be followed with ultrasound. Loops of bowel within the abdomen pelvis are normal. Liver, spleen, pancreas, adrenal glands all within normal limits. Gallbladder surgically absent. Kidneys without any mass, hydronephrosis or cyst present. Transvaginal ultrasound without evidence for ovarian torsion. Patient given morphine, dilaudid and IV fluids with no pain relief. Spoke with Dr. Carrillo who agreed to admit patient to his services. Spoke with Dr. Perry who performed procedure and she agreed to be consulted and see the patient. Case discussed in detail with my attending, Dr. Sarmiento. Patient agreed to be admitted for further w orkup, evaulation and treatment. - Lab Data Result diagrams: 10/02/21 13:07 10/02/21 13:30 Lab Results 10/02/21 10/02/21 10/02/21 Range/Units 13:07 13:07 13:07 WBC 13.1 H (3.8-10.6) k/uL RBC 4.26 (3.80-5.40) m/uL Hgb 13.1 (11.4-16.0) gm/dL Hct 40.8 (34.0-46.0) % MCV 95.6 (80.0-100.0) fL MCH 30.8 (25.0-35.0) pg MCHC 32.2 (31.0-37.0) g/dL RDW 13.2 (11.5-15.5) % Plt Count 281 (150-450) k/uL MPV 7.9 Neutrophils % 75 % Lymphocytes % 16 % Monocytes % 4 % Eosinophils % 4 % Basophils % 1 % Neutrophils # 9.9 H (1.3-7.7) k/uL Lymphocytes # 2.2 (1.0-4.8) k/uL Monocytes # 0.5 (0-1.0) k/uL Eosinophils # 0.5 (0-0.7) k/uL Basophils # 0.1 (0-0.2) k/uL PT 10.3 (9.0-12.0) sec INR 0.9 (<1.2) APTT 22.5 (22.0-30.0) sec Sodium (137-145) mmol/L Potassium (3.5-5.1) mmol/L Chloride (98-107) mmol/L Carbon Dioxide (22-30) mmol/L Anion Gap mmol/L BUN (7-17) mg/dL Creatinine (0.52-1.04) mg/dL Est GFR (CKD-EPI)AfAm (>60 ml/min/1.73 sqM) Est GFR (CKD-EPI)NonAf (>60 ml/min/1.73 sqM) Glucose (74-99) mg/dL Plasma Lactic Acid Reji 1.5 (0.7-2.0) mmol/L Calcium (8.4-10.2) mg/dL Total Bilirubin (0.2-1.3) mg/dL AST (14-36) U/L ALT (4-34) U/L Alkaline Phosphatase (38-126) U/L Total Protein (6.3-8.2) g/dL Albumin (3.5-5.0) g/dL Amylase (30-110) U/L Lipase (23-300) U/L Urine Color Urine Appearance (Clear) Urine pH (5.0-8.0) Ur Specific [place] (1.001-1.035) Urine Protein (Negative) Urine Glucose (UA) (Negative) Urine Ketones (Negative) Urine Blood (Negative) Urine Nitrite (Negative) Urine Bilirubin (Negative) Urine Urobilinogen (<2.0) mg/dL Ur Leukocyte Esterase (Negative) Urine RBC (0-5) /hpf Urine WBC (0-5) /hpf Ur Squamous Epith Cells (0-4) /hpf Urine HCG, Qual (Not Detectd) 10/02/21 10/02/21 10/02/21 Range/Units 13:23 13:23 13:30 WBC (3.8-10.6) k/uL RBC (3.80-5.40) m/uL Hgb (11.4-16.0) gm/dL Hct (34.0-46.0) % MCV (80.0-100.0) fL MCH (25.0-35.0) pg MCHC (31.0-37.0) g/dL RDW (11.5-15.5) % Plt Count (150-450) k/uL MPV Neutrophils % % Lymphocytes % % Monocytes % % Eosinophils % % Basophils % % Neutrophils # (1.3-7.7) k/uL Lymphocytes # (1.0-4.8) k/uL Monocytes # (0-1.0) k/uL Eosinophils # (0-0.7) k/uL Basophils # (0-0.2) k/uL PT (9.0-12.0) sec INR (<1.2) APTT (22.0-30.0) sec Sodium 137 (137-145) mmol/L Potassium 4.1 (3.5-5.1) mmol/L Chloride 107 (98-107) mmol/L Carbon Dioxide 25 (22-30) mmol/L Anion Gap 5 mmol/L BUN 13 (7-17) mg/dL Creatinine 0.83 (0.52-1.04) mg/dL Est GFR (CKD-EPI)AfAm >90 (>60 ml/min/1.73 sqM) Est GFR (CKD-EPI)NonAf >90 (>60 ml/min/1.73 sqM) Glucose 98 (74-99) mg/dL Plasma Lactic Acid Reji (0.7-2.0) mmol/L Calcium 8.9 (8.4-10.2) mg/dL Total Bilirubin 0.2 (0.2-1.3) mg/dL AST 26 (14-36) U/L ALT 19 (4-34) U/L Alkaline Phosphatase 62 (38-126) U/L Total Protein 6.7 (6.3-8.2) g/dL Albumin 4.1 (3.5-5.0) g/dL Amylase 66 (30-110) U/L Lipase 66 (23-300) U/L Urine Color Yellow Urine Appearance Cloudy H (Clear) Urine pH 6.0 (5.0-8.0) Ur Specific [place] 1.019 (1.001-1.035) Urine Protein Negative (Negative) Urine Glucose (UA) Negative (Negative) Urine Ketones Negative (Negative) Urine Blood Negative (Negative) Urine Nitrite Negative (Negative) Urine Bilirubin Negative (Negative) Urine Urobilinogen <2.0 (<2.0) mg/dL Ur Leukocyte Esterase Negative (Negative) Urine RBC 1 (0-5) /hpf Urine WBC 1 (0-5) /hpf Ur Squamous Epith Cells 10 H (0-4) /hpf Urine HCG, Qual Not Detected (Not Detectd) Disposition Clinical Impression: Postoperative abdominal pain, Ovarian cyst, right, Leukocytosis Disposition: ADMITTED IP TO THIS [facility] Condition: Serious Referrals: Roberto Carrillo MD [Primary Care Provider] - 1-2 days
[2021-10-02 13:33] LABS: INR 0.9 (<1.2); Partial Thromboplastin Time 22.5 sec (22.0-30.0); Prothrombin Time 10.3 sec (9.0-12.0)
[2021-10-02 13:44] LABS: Appearance,Urine Cloudy (Clear); Bilirubin,Urine Negative (Negative); Blood,Urine Negative (Negative); Color,Urine Yellow; Glucose,Urine (UA) Negative (Negative); Ketones,Urine Negative (Negative); Leukocyte Esterase,Urine Negative (Negative); Nitrite,Urine Negative (Negative); Protein,Urine Negative (Negative); RBC,Urine 1 /hpf (0-5); Specific Gravity,Urine 1.019 (1.001-1.035); Squamous Epithelial Cell,Urine 10 /hpf (0-4); Urobilinogen,Urine <2.0 mg/dL (<2.0); WBC,Urine 1 /hpf (0-5)
[2021-10-02 13:54] LABS: ALT 19 U/L (4-34); AST 26 U/L (14-36); African American GFR (CKD) >90 (>60 ml/min/1.73 sqM); Albumin 4.1 g/dL (3.5-5.0); Alkaline Phosphatase 62 U/L (38-126); Amylase 66 U/L (30-110); Anion Gap 5 mmol/L; Blood Urea Nitrogen 13 mg/dL (7-17); Calcium 8.9 mg/dL (8.4-10.2); Carbon Dioxide 25 mmol/L (22-30); Chloride 107 mmol/L (98-107); Glucose 98 mg/dL (74-99); Lipase 66 U/L (23-300); Non-African American GFR(CKD) >90 (>60 ml/min/1.73 sqM); Potassium 4.1 mmol/L (3.5-5.1); Sodium 137 mmol/L (137-145); Total Bilirubin 0.2 mg/dL (0.2-1.3); Total Protein 6.7 g/dL (6.3-8.2)
[2021-10-02] MEDS ORDERED: MORPHINE SULFATE 4 MG/ML SYRINGE IVP STA (14:01)
--- NOTE | 2021-10-02 15:25 | CT ---
EXAMINATION TYPE: CT abdomen pelvis w con DATE OF EXAM: 10/02/2021 COMPARISON: INDICATION: Abdominal pain DLP: 1980.5 mGycm, Automated exposure control for dose reduction was used. CONTRAST: 100 mL of Isovue 300. Study performed without Oral Contrast TECHNIQUE: Axial images were obtained from above the diaphragm to the pubic rami in the axial plane a t 5 mm thick sections. Reconstructed images are reviewed on the computer in the coronal plane. FINDINGS: Limited CT sections are obtained the lung bases. There may be some very minimal compressive atelecta sis along the medial right lung base. Lung bases otherwise appear clear.. CT ABDOMEN: Liver: Normal Spleen: Normal Pancreas: Normal Adrenal glands: The adrenal glands are normal. Gallbladder: Surgically absent Kidneys: No masses are evident. No hydronephrosis is present. No cysts are present. Delayed images were obtained through the kidneys, which remain unremarkable. Aorta: Normal Inferior vena cava: Normal. CT PELVIS: Loops of bowel within the abdomen and pelvis are normal. This study is lateral contrast limiting the evaluation. Appendix: Normal as visualized. Urinary bladder: Normal. Genitourinary structures: There is a 4.5 x 5.5 cm cyst on the right ovary. The uterus appears unremar kable. Left adnexa appears unremarkable. Osseous structures: No suspicious lytic or sclerotic lesions evident. IMPRESSIONS: 1. 5.5 x 4.5 cm right ovarian cyst this can be followed with ultrasound.
--- NOTE | 2021-10-02 16:22 | US ---
EXAMINATION TYPE: US transvaginal DATE OF EXAM: 10/02/2021 COMPARISON: Same day CT CLINICAL HISTORY: right pain. Pt states right side ABD pain TECHNIQUE: Transvaginal (TV). Transvaginal sonographic images of the pelvis were acquired. Date of LMP: 08/11/2021 EXAM MEASUREMENTS: Uterus: 10.6 x 4.1 x 4.9 cm Endometrial Stripe: 1.0 cm Right Ovary: 5.7 x 5.4 x 5.8 cm 1. Uterus: Anteverted Possible Nabothian cyst in cervix= 0.7 cm 2. Endometrium: wnl 3. Right Ovary: Cystic lesion with debris= 5.1 x 4.6 x 5.3 cm 4. Left Ovary: Obscured by overlying bowel gas Spectral, color and waveform doppler imaging shows good arterial and venous flow within the right o vary; there is no evidence for ovarian torsion. 5. Bilateral Adnexa: wnl 6. Posterior cul-de-sac: Small amount of free fluid posterior cul de sac IMPRESSION: Large complex right ovarian cyst. Follow-up following the next normal menstrual period wa s 6 weeks is recommended.
[2021-10-02] MEDS ORDERED: NALOXONE 0.4 MG/ML 1 ML VIAL IV PRN (17:10)
[2021-10-02] MEDS ORDERED: ONDANSETRON 4 MG/2 ML VIAL IVP PRN (17:10)
[2021-10-02] MEDS: SODIUM CHLORIDE 0.9% 1,000 ML IV SCH (18:17)
[2021-10-02] MEDS: HYDROmorphone 0.5 MG/0.5 ML SYRINGE IVP PRN ×2 (18:49→22:30)
--- NOTE | 2021-10-02 20:41 | HP ---
HISTORY AND PHYSICAL CHIEF COMPLAINT: Abdominal pain and leukocytosis. HISTORY OF PRESENT ILLNESS: This is another recent admission for this 31-year-old white female. Last Brando she underwent a laparoscopic cholecystectomy. She has had some minor discomfort in the right upper quadrant since then. She has been eating, drinking and urinating normally. She has not had a bowel movement, but she has been passing gas. Stool and urine are normal. She has had no fever or chills. She got up in the morning of admission and she had an increased amount of pain in the right upper quadrant going toward the back and up into the anterior chest and shoulder and across the chest into the other shoulder area. She came to the emergency room, where her CT scan was unremarkable except for a right ovarian cyst. White count was 13,100. The ER physician consulted with her surgeon and it was decided that they would bring her in for further evaluation. REVIEW OF SYSTEMS: She denies any confusion, headaches, hematemesis, melena, hematochezia, hematochezia, jaundice, acholic stools, dark urine, dysuria, frequency, urgency, etc. Past medical history, family history, and personal and social histories are all otherwise unremarkable, noncontributory or otherwise unchanged. She is ALLERGIC TO SULFA. She does smoke. PHYSICAL EXAMINATION: Pulse is 81, respirations were 25, and she is afebrile. In general she appeared to be overweight and in no acute distress. Skin color was normal, although she did look slightly pale. Lymph nodes were not enlarged. Head, ears, eyes, nose, mouth and throat were normal and sclerae looked normal, not particularly pale. There was no icterus. Neck was supple. There were no neck masses. Chest was clear. Cardiac exam was normal. The abdomen was protuberant and soft, and the 3 scope incisions looked normal and not infected. There was no bleeding. She was slightly tender in the right upper quadrant. Bowel sounds were present. Extremities were normal and neurologically she was intact. She is admitted to the hospital with diagnosis: Postoperative cholecystectomy with right upper quadrant pain and leukocytosis. PLAN: 1. Bedrest. 2. IV fluids. 3. General surgery evaluation. MMODL / IJN: [id number] /
[2021-10-02] MEDS: KETOROLAC 15 MG/ML 1 ML VIAL IVP PRN (23:44)
[2021-10-03] MEDS: SODIUM CHLORIDE 0.9% 1,000 ML IV SCH ×3 (01:43→17:20)
[2021-10-03] MEDS: HYDROmorphone 0.5 MG/0.5 ML SYRINGE IVP PRN ×3 (02:51→13:54)
[2021-10-03] MEDS: KETOROLAC 15 MG/ML 1 ML VIAL IVP PRN ×3 (09:05→20:24)
--- NOTE | 2021-10-03 09:50 | P.GSCN ---
History of Present Illness Consult date: 10/02/21 Reason for Consult: Abdominal pain History of present illness: The patient is a 31-year-old female who has a history of right upper quadrant abdominal pain for several years. She had had extensive work-up including CT scans, ultrasound, HIDA scan twice. Initial HIDA scan showed nonvisualization of the gallbladder. Follow-up HIDA scan showed marked delay in uptake and then showed a normal ejection fraction. She underwent EGD and colonoscopy which failed to reveal any pathology. Friday she underwent a laparoscopic cholecystectomy. She has no problem with the incisions. She had recurrent right upper quadrant pain that was severe and felt like labor pains. This was similar to the pain she was having previously. No fevers or chills. No nausea or vomiting. Review of Systems All systems: negative Past Medical History Past Medical History: Asthma Additional Past Medical History / Comment(s): scoliosis History of Any Multi-Drug Resistant Organisms: None Reported Past Surgical History: Cholecystectomy Additional Past Surgical History / Comment(s): wisdom teeth removed. EGD/colonoscopy Past Anesthesia/Blood Transfusion Reactions: No Reported Reaction Smoking Status: Current every day smoker, Light tobacco smoker - Past Family History Mother Family Medical History: COPD Additional Family Medical History / Comment(s): Depression Medications and Allergies Home Medications Medication Instructions Recorded Confirmed Type HYDROcodone/APAP 5-325MG [[place] 1 - 2 tab PO Q6HR PRN #15 tab 09/28/21 10/02/21 Rx 5-325] Docusate [Colace] 100 mg PO TID 10/02/21 10/02/21 History Allergies Allergy/AdvReac Type Severity Reaction Status Date / Time Sulfa (Sulfonamide Allergy Rash/Hives Verified 10/02/21 13:43 Antibiotics) Surgical - Exam Osteopathic Statement: *. No significant issues noted on an osteopathic structural exam other than those noted in the History and Physical/Consult. Vital Signs Temp Pulse Resp BP Pulse Ox 97.7 F 66 18 187/96 98 10/02/21 12:37 10/02/21 12:37 10/02/21 12:37 10/02/21 12:37 10/02/21 12:37 - General well developed, well nourished, no distress - Eyes normal ocular movement - Abdomen Abdomen: soft, tender (Mild incisional tenderness otherwise benign), bowel sounds, surgical scars (Healing well) Results - Labs 10/02/21 13:07 10/02/21 13:30 Abnormal Lab Results - Last 24 Hours (Table) 10/02/21 10/02/21 Range/Units 13:07 13:23 WBC 13.1 H (3.8-10.6) k/uL Neutrophils # 9.9 H (1.3-7.7) k/uL Urine Appearance Cloudy H (Clear) Ur Squamous Epith Cells 10 H (0-4) /hpf Diabetes panel 10/02/21 Range/Units 13:30 Sodium 137 (137-145) mmol/L Potassium 4.1 (3.5-5.1) mmol/L Chloride 107 (98-107) mmol/L Carbon Dioxide 25 (22-30) mmol/L BUN 13 (7-17) mg/dL Creatinine 0.83 (0.52-1.04) mg/dL Glucose 98 (74-99) mg/dL Calcium 8.9 (8.4-10.2) mg/dL AST 26 (14-36) U/L ALT 19 (4-34) U/L Alkaline Phosphatase 62 (38-126) U/L Total Protein 6.7 (6.3-8.2) g/dL Albumin 4.1 (3.5-5.0) g/dL Calcium panel 10/02/21 Range/Units 13:30 Calcium 8.9 (8.4-10.2) mg/dL Albumin 4.1 (3.5-5.0) g/dL Pituitary panel 10/02/21 Range/Units 13:30 Sodium 137 (137-145) mmol/L Potassium 4.1 (3.5-5.1) mmol/L Chloride 107 (98-107) mmol/L Carbon Dioxide 25 (22-30) mmol/L BUN 13 (7-17) mg/dL Creatinine 0.83 (0.52-1.04) mg/dL Glucose 98 (74-99) mg/dL Calcium 8.9 (8.4-10.2) mg/dL Adrenal panel 10/02/21 Range/Units 13:30 Sodium 137 (137-145) mmol/L Potassium 4.1 (3.5-5.1) mmol/L Chloride 107 (98-107) mmol/L Carbon Dioxide 25 (22-30) mmol/L BUN 13 (7-17) mg/dL Creatinine 0.83 (0.52-1.04) mg/dL Glucose 98 (74-99) mg/dL Calcium 8.9 (8.4-10.2) mg/dL Total Bilirubin 0.2 (0.2-1.3) mg/dL AST 26 (14-36) U/L ALT 19 (4-34) U/L Alkaline Phosphatase 62 (38-126) U/L Total Protein 6.7 (6.3-8.2) g/dL Albumin 4.1 (3.5-5.0) g/dL - Imaging CT scan - abdomen: report reviewed Assessment and Plan (1) Abdominal pain Current Visit: Yes Status: Acute Code(s): R10.9 - UNSPECIFIED ABDOMINAL PAIN SNOMED Code(s): 11606971 Plan: The patient is having pain similar to what she was experiencing preoperatively. She had an extensive work-up. Laparoscopy was unremarkable. And will think th e pain is related to surgery. This is likely a continuation of her preoperative pain. We did have this discussion that if the pain was not due to the gallbladder that her pain may persist after surgery. At this point I would recommend GI evaluation to rule out some things odd such as sphincter of Oddi dysfunction. I will follow-up for her postop check as previously scheduled
[2021-10-03 10:15] LABS: Basophils % (A) 0 %; Eosinophils # (A) 0.1 k/uL (0-0.7); Eosinophils % (A) 1 %; HCT 38.1 % (34.0-46.0); HGB 12.3 gm/dL (11.4-16.0); Lymphocytes # (A) 1.3 k/uL (1.0-4.8); Lymphocytes % (A) 12 %; MCH 31.1 pg (25.0-35.0); MCHC 32.3 g/dL (31.0-37.0); MCV 96.2 fL (80.0-100.0); Monocytes # (A) 0.5 k/uL (0-1.0); Monocytes % (A) 4 %; Neutrophils # (A) 9.5 k/uL (1.3-7.7); Neutrophils % (A) 82 %; Platelet Count 240 k/uL (150-450); RBC 3.96 m/uL (3.80-5.40); RDW 13.2 % (11.5-15.5); WBC 11.6 k/uL (3.8-10.6)
[2021-10-03 11:51] VITALS: BMI 36.6
[2021-10-03] MEDS: HEPARIN SODIUM,PORCINE/PF 5,000 UNIT/0.5 ML SYRINGE SQ SCH ×2 (16:06→20:26)
[2021-10-03] MEDS: HYDROcodone/APAP 5-325MG 1 EACH TAB PO PRN (17:20)
[2021-10-04] MEDS: SODIUM CHLORIDE 0.9% 1,000 ML IV SCH ×3 (00:01→16:28)
[2021-10-04] MEDS: HYDROcodone/APAP 5-325MG 1 EACH TAB PO PRN ×3 (00:01→16:29)
[2021-10-04] MEDS: LORazepam 2 MG/ML INJ IV PRN ×2 (01:05→08:09)
[2021-10-04] MEDS: KETOROLAC 15 MG/ML 1 ML VIAL IVP PRN ×3 (05:21→21:18)
[2021-10-04] MEDS: HEPARIN SODIUM,PORCINE/PF 5,000 UNIT/0.5 ML SYRINGE SQ SCH ×2 (07:58→16:28)
[2021-10-04 09:24] LABS: Basophils # (A) 0.07 X 10*3/uL (0.00-0.10); Basophils % (A) 0.7 %; Eosinophils # (A) 0.26 X 10*3/uL (0.04-0.35); Eosinophils % (A) 2.8 %; HCT 35.9 % (37.2-46.3); HGB 11.7 g/dL (12.0-15.0); Immature Grans, Automated 0.3 %; Lymphocytes # (A) 2.32 X 10*3/uL (0.90-5.00); Lymphocytes % (A) 24.7 %; MCH 30.8 pg (27.0-32.0); MCHC 32.6 g/dL (32.0-37.0); MCV 94.5 fL (80.0-97.0); Mean Platelet Volume 11.3 fL (9.5-12.2); Monocytes % (A) 6.4 %; NRBC Per 100 WBC 0 /100 WBCS (0.0-0.0); Neutrophils # (A) 6.11 X 10*3/uL (1.80-7.70); Neutrophils % (A) 65.1 %; Platelet Count 247 X 10*3/uL (140-440); RDW 13.3 % (11.5-14.5); WBC 9.39 X 10*3/uL (4.50-10.00)
[2021-10-04 09:27] LABS: African American GFR (CKD) 135.7 (60.0-200.0); Albumin 3.8 g/dL (3.8-4.9); Albumin/Globulin Ratio 1.81 (1.60-3.17); BUN/Creat Ratio 8.71 Ratio (12.00-20.00); Blood Urea Nitrogen 6.1 mg/dL (9.0-27.0); Calcium 8.6 mg/dL (8.7-10.3); Globulin 2.1 g/dL (1.6-3.3); Non-African American GFR(CKD) 117.1 (60.0-200.0); Potassium 4.1 mmol/L (3.5-5.5); Total Bilirubin 0.3 mg/dL (0.30-1.20); Total Protein 5.9 g/dL (6.2-8.2)
--- NOTE | 2021-10-04 10:20 | P.PN ---
Subjective Progress Note Date: 10/03/21 Patient is a 31-year-old female with a known history of recent laparoscopic cholecystectomy on 09/28/2021 presents to ER with complaints of right upper quadrant pain started yesterday around 9 AM. Patient was feeling better after surgery and started having pain again. Sharp pain in the right upper quadrant and radiating to the back and also bilateral shoulders. Patient felt nauseous. No ulcers or vomiting. Patient did take [place] at home which did not alleviate her pain and came to ER for evaluation. Otherwise patient denied any complaints of fever or chills. No diarrhea. No headache or dizziness or lightheadedness. No chest pain or shortness of breath. CT of the abdomen pelvis showed right ovarian cyst. No fluid collection was noted. 10/03/2021. Patient is still complaining of pain. 7 out of 10 in severity. Patient still nauseated. No chills or vomiting. Does not feel like eating. No cough or sputum production. No headache or dizziness or lightheadedness. Laboratory test showed WBC 11.6 hemoglobin 12.3 and platelets 240 initial laboratory data showed lactic acid 1.5 total bilirubin level 0.2 AST 26 ALT 19 alk phos 62 and lipase is 66 and amylase 66 UA negative for infection. GI was consulted for evaluation. Current medications reviewed. Objective - Vital Signs Vital signs: Vital Signs Temp 98.2 F 10/03/21 14:30 Pulse 72 10/03/21 14:30 Resp 16 10/03/21 15:04 BP 121/78 10/03/21 14:30 Pulse Ox 97 10/03/21 14:30 Intake & Output 10/02/21 10/03/21 10/03/21 18:59 06:59 18:59 Intake Total 118 Balance 118 Weight 93.894 kg 93.894 kg Intake: Oral 118 Other: Voiding Method Toilet # Voids 1 - Exam PHYSICAL EXAMINATION: Patient is lying in the bed comfortably, no acute distress, awake alert and leroy ented.. HEENT: Normocephalic. Neck is supple. Pupils reactive. Nostrils clear. Oral cavity is moist. Neck reveals no JVD, carotid bruits, or thyromegaly. CHEST EXAMINATION: Trachea is central. Symmetrical expansion. Lung anderson clear to auscultation and percussion. CARDIAC: Normal S1, S2 with no gallops. No murmurs ABDOMEN: Soft. Right upper quadrant tenderness. Surgical incision is healing well. No drainage noted. Bowel sounds present. No organomegaly. No abdominal bruits. Extremities: reveal no edema. No clubbing or cyanosis Neurologically awake, alert, oriented x3 with well-coordinated movements. No focal deficits noted Skin: No rash or skin lesions. Psychiatric: Coperative. Nonsuicidal Musculoskeletal: No joint swelling or deformity. Normal range of motion. - Labs CBC & Chem 7: 10/04/21 05:47 10/04/21 05:47 Labs: Abnormal Lab Results - Last 24 Hours (Table) 10/03/21 Range/Units 09:55 WBC 11.6 H (3.8-10.6) k/uL Neutrophils # 9.5 H (1.3-7.7) k/uL Assessment and Plan Assessment: Right upper quadrant pain likely due to postoperative pain. CT abdomen showed no fluid collection. Right ovarian complex cyst. Transvaginal ultrasound was done. Follow-up after normal menstrual period was recommended. S/p laparoscopic cholecystectomy on 09/28/2021. Mild leukocytosis improving GI and DVT prophylaxis Plan: Patient will be continued on IV hydration and symptomatic management for nausea. Continue with pain management with Dilaudid and follow-up closely. Follow-up repeat CBC and CMP tomorrow. GI was consulted for evaluation. Continue to follow closely. Time with Patient: Greater than 30
[2021-10-04] MEDS: PANTOPRAZOLE 40 MG TABLET PO SCH (10:37)
[2021-10-04] MEDS ORDERED: DICYCLOMINE 20 MG TAB PO PRN (12:28)
--- NOTE | 2021-10-04 15:33 | P.CONS ---
History of Present Illness - Reason for Consult Consult date: 10/04/21 Abdominal pain Requesting physician: Roberto Carrillo - Chief Complaint Abdominal pain - History of Present Illness Subtle pleasant 31-year-old female who presented to the emergency department with complaints of acute abdominal pain status post cholecystectomy. Patient underwent cholecystectomy with Dr. Perry on 09/28/2021 for poor functioning gallbladder. She has had abdominal pain for several years and has had extensive outpatient workup including CAT scans, ultrasounds HIDA scans EGD and colonoscopy with Dr. Perry. EGD pathology showed mild chronic and focal active gastritis. Negative for H pylori. Colonoscopy biopsy showed terminal ileum biopsy with rare active ileitis negative for diagnostic features of granulomatous inflammation or inflammatory bowel disease. Patient states she woke up Friday in the middle of the night with severe pain that was in the epigastric region that radiates up into her right arm and shoulder and around her back to her other shoulder. She states she did have a bowel movement yesterday evening. She still has intermittent pain. She has no nausea or vomiting. Appetite has been normal and she is afebrile. Labs were unremarkable. Review of Systems REVIEW OF SYSTEMS: CARDIOPULMONARY: No chest pain or shortness of breath. Gastrointestinal: Epigastric, right upper quadrant pain that radiates into her right shoulder and back. No nausea or vomiting. No hematemesis, coffee-ground emesis. No rectal bleeding, or melena. GENITOURINARY: No dysuria or hematuria. MUSCULOSKELETAL: Reports normal range of motion. SKIN: No rashes. No jaundice. ENDOCRINE: No chills, fevers. No excessive weight gain or loss. No polydipsia or polyuria. PSYCHIATRIC: Unremarkable. NEUROLOGY: No change in mental status. Denies dizziness, headache. ENT: Vision unremarkable. CONSTITUTIONAL: No recent weight loss. No fever, chills, night sweats. Past Medical History Past Medical History: Asthma Additional Past Medical History / Comment(s): scoliosis History of Any Multi-Drug Resistant Organisms: None Reported Past Surgical History: Cholecystectomy Additional Past Surgical History / Comment(s): wisdom teeth removed. EGD/colonoscopy Past Anesthesia/Blood Transfusion Reactions: No Reported Reaction Smoking Status: Current every day smoker, Light tobacco smoker - Past Family History Mother Family Medical History: COPD Additional Family Medical History / Comment(s): Depression Medications and Allergies Home Medications Medication Instructions Recorded Confirmed Type HYDROcodone/APAP 5-325MG [[place] 1 - 2 tab PO Q6HR PRN #15 tab 09/28/21 10/02/21 Rx 5-325] Docusate [Colace] 100 mg PO TID 10/02/21 10/02/21 History Allergies Allergy/AdvReac Type Severity Reaction Status Date / Time Sulfa (Sulfonamide Allergy Rash/Hives Verified 10/03/21 10:02 Antibiotics) Physical Exam Vitals: Vital Signs Temp Pulse Resp BP Pulse Ox 10/04/21 07:58 16 10/04/21 07:30 98.1 F 72 16 124/78 96 10/04/21 02:26 98.5 F 69 18 110/68 95 10/03/21 19:43 98.7 F 66 18 115/75 100 10/03/21 15:04 16 10/03/21 14:30 98.2 F 72 16 121/78 97 Intake and Output 10/03/21 10/04/21 10/04/21 22:59 06:59 14:59 Intake Total 118 Balance 118 Intake: Oral 118 Other: Voiding Method Toilet Toilet Toilet # Voids 1 1 General appearance: The patient is alert, oriented, appears in no acute distr ess. Obese. HET: Head is normocephalic and atraumatic. Conjunctiva pink. Sclera anicteric. Neck: Supple without lymphadenopathy. Trachea midline. Heart: S1 S2. Regular rate and rhythm. Lungs: Clear to auscultation. Abdomen: Soft, obese, mild surgical tenderness, tender in the right upper quadra nt, his surgical incisions well approximated, nondistended with decreased bowel sounds. No guarding or rigidity. Skin: No rashes. No jaundice. Extremities: Normal skin color and turgor. No pedal edema. Neurological: No focal deficits. Alert and oriented x3. Results CBC & Chem 7: 10/04/21 05:47 10/04/21 05:47 Labs: Abnormal Lab Results - Last 24 Hours (Table) 10/03/21 Range/Units 09:55 WBC 11.6 H (3.8-10.6) k/uL Neutrophils # 9.5 H (1.3-7.7) k/uL Comments: Computed tomography scan abdomen and pelvis shows a 5.5 x 4.5 cm right ovarian cyst Transvaginal ultrasound shows a large complex right ovarian cyst follow-up following Normal menstrual period in 6 weeks is recommended Assessment and Plan (1) Abdominal pain Narrative/Plan: 31-year-old female who has had reported chronic right upper quadrant pain for the last several years has been following with general surgeon Dr. Perry. He has had extensive outpatient workup including CAT scans, ultrasounds, HIDA scans, EGD and colonoscopy without any significant finding. Last HIDA scan did show poorly functioning gallbladder and patient had O patient laparoscopic ch olecystectomy on 09/28/2021. Patient states since then she had felt better initially and then Friday woke up with excruciating pain again. Similar pain 2 prior to her surgery. States the pain is in the right upper quadrant wraps around her shoulder. Symptoms are not likely sphincter of oddi, likely functional abdominal pain possible IBS. Will start patient on dicyclomine 10 mg 4 times a day, encourage patient for ambulation. Current Visit: Yes Status: Acute Code(s): R10.9 - UNSPECIFIED ABDOMINAL PAIN SNOMED Code(s): 10825111 Plan: 1. Continue symptomatic and supportive care 2. Encouraged ambulation 3. Dicyclomine 10 mg 4 times a day 4. No plans on endoscopic evaluation 5. This is likely functional abdominal pain, possible IBS. Can have further management outpatient with gastroenterology. Thank you for this consultation, we will continue to follow. Dr. Colleen Robert I agree with the dictator's note, documented as a scribe by Makenna Song.
[2021-10-04] MEDS: DICYCLOMINE 10 MG CAP PO SCH ×2 (16:27→21:18)
[2021-10-05] MEDS: LORazepam 2 MG/ML INJ IV PRN ×2 (00:30→09:26)
[2021-10-05] MEDS: HEPARIN SODIUM,PORCINE/PF 5,000 UNIT/0.5 ML SYRINGE SQ SCH ×2 (00:30→09:17)
[2021-10-05] MEDS: SODIUM CHLORIDE 0.9% 1,000 ML IV SCH ×2 (00:33→06:02)
--- NOTE | 2021-10-05 01:12 | P.PN ---
Subjective Progress Note Date: 10/04/21 Patient is a 31-year-old female with a known history of recent laparoscopic cholecystectomy on 09/28/2021 presents to ER with complaints of right upper quadrant pain started yesterday around 9 AM. Patient was feeling better after surgery and started having pain again. Sharp pain in the right upper quadrant and radiating to the back and also bilateral shoulders. Patient felt nauseous. No ulcers or vomiting. Patient did take [place] at home which did not alleviate her pain and came to ER for evaluation. Otherwise patient denied any complaints of fever or chills. No diarrhea. No headache or dizziness or lightheadedness. No chest pain or shortness of breath. CT of the abdomen pelvis showed right ovarian cyst. No fluid collection was noted. 10/03/2021. Patient is still complaining of pain. 7 out of 10 in severity. Patient still nauseated. No chills or vomiting. Does not feel like eating. No cough or sputum production. No headache or dizziness or lightheadedness. Laboratory test showed WBC 11.6 hemoglobin 12.3 and platelets 240 initial laboratory data showed lactic acid 1.5 total bilirubin level 0.2 AST 26 ALT 19 alk phos 62 and lipase is 66 and amylase 66 UA negative for infection. GI was consulted for evaluation. Current medications reviewed. 10/04/2021 Patient is seen and evaluated and follow-up continues to have extreme 10/10 pain with nausea and no intake due to her pain that she reports being in the right lower quadrant that is radiating up to her right shoulder. Patient being followed by general surgery DR. Perry status post fish and no plans for surgical interventions at this time. Patient to be evaluated by GI. Patient is reporting nausea with no reports of vomiting. Poor oral intake. Patient is afebrile and denies chest pain or shortness of breath. Patient is extremely anxious. Review of systems: Constitutional: No reports of fatigue, fever, or chills Cardiovascular: No reports of chest pain or palpitations Respiratory: No reports of shortness of breath or cough GI: reports of nausea, no reports of vomiting, or diarrhea, reports severe abdo jd pain in the right lower quadrant that radiates to right shoulder : No reports of dysuria or retention Neurovascular: reports of generalized weakness or numbness All medications have been reviewed Active Medications Hydrocodone Bitart/Acetaminophen (Hydrocodone/Apap 5-325mg 1 Each Tab) 1 each PO Q4HR PRN PRN Reason: Pain Last Admin: 10/04/21 10:49 Dose: 1 each Documented by: Dicyclomine HCl (Dicyclomine 10 Mg Cap) 10 mg PO QID [facility] Heparin Sodium (Porcine) (Heparin Sodium,Porcine/Pf 5,000 Unit/0.5 Ml Syringe) 5,000 unit SQ Q8HR [facility] Last Admin: 10/04/21 07:58 Dose: 5,000 unit Documented by: Sodium Chloride (Saline 0.9%) 1,000 mls @ 130 mls/hr IV .Q7H42M [facility] Last Admin: 10/04/21 07:55 Dose: 130 mls/hr Documented by: Ketorolac Tromethamine (Ketorolac 15 Mg/Ml 1 Ml Vial) 15 mg IVP Q6HR PRN PRN Reason: Pain Stop: 10/05/21 23:15 Last Admin: 10/04/21 13:14 Dose: 15 mg Documented by: Lorazepam (Lorazepam 2 Mg/Ml Inj) 1 mg IV Q6HR PRN PRN Reason: Anxiety Last Admin: 10/04/21 08:09 Dose: 1 mg Documented by: Naloxone HCl (Naloxone 0.4 Mg/Ml 1 Ml Vial) 0.2 mg IV Q2M PRN PRN Reason: Opioid Reversal Ondansetron HCl (Ondansetron 4 Mg/2 Ml Vial) 4 mg IVP Q8HR PRN PRN Reason: Nausea And Vomiting Pantoprazole Sodium (Pantoprazole 40 Mg Tablet) 40 mg PO [id number] [facility] Last Admin: 10/04/21 10:37 Dose: 40 mg Documented by: PHYSICAL EXAMINATION: Patient is lying in the bed reporting 10/10 pain, awake alert and oriented.. a nxious HEENT: Normocephalic. Neck is supple. Pupils reactive. Nostrils clear. Oral cavity is dry. Neck reveals no JVD, carotid bruits, or thyromegaly. CHEST EXAMINATION: Trachea is central. Symmetrical expansion. Lung anderson clear to auscultation and percussion. CARDIAC: Normal S1, S2 with no gallops. No murmurs ABDOMEN: Soft. obese Right upper and lower quadrant tenderness. Surgical incision is healing well. No drainage noted. Bowel sounds present. No organomegaly. No abdominal bruits. Extremities: reveal no edema. No clubbing or cyanosis Neurologically awake, alert, oriented x3 with well-coordinated movements. No focal deficits noted Skin: No rash or skin lesions. Psychiatric: Cooperative. Non-suicidal Musculoskeletal: No joint swelling or deformity. Normal range of motion. Assessment: Right upper quadrant pain likely due to postoperative pain. CT abdomen showed no fluid collection. Right ovarian complex cyst. Transvaginal ultrasound was done. Follow-up after normal menstrual period was recommended. S/p laparoscopic cholecystectomy on 09/28/2021. Mild leukocytosis improving GI and DVT prophylaxis Full code Plan: Patient will be continued on IV hydration and symptomatic management for nausea. Continue with pain management as patient is reporting 10/10 pain. Transitioned to oral pain medications and encouraged increased activity and getting up and walking more often. Encouraged oral intake. GI evaluated the patient and started on bentyl. Abdominal binder ordered. Patient will need follow up with GI outpatient. Will closely monitor closely overnight for her uncontrolled pain with possible discharge in 24 hours. The impression and plan of care has been dictated by Praveena Gibbs, Nurse Practitioner as directed. Dr. Jorge MD I have performed a history and examination and MDM of this patient, discussed the same with the dictator, and agree with the dictator's assessment and plan as written ,documented as a scribe. Based on total visit time, I have performed more than 50% of the visit. Objective - Vital Signs Vital signs: Vital Signs Temp 98.7 F 10/04/21 13:42 Pulse 61 10/04/21 13:42 Resp 18 10/04/21 13:42 BP 141/87 10/04/21 13:42 Pulse Ox 97 10/04/21 13:42 Intake & Output 10/03/21 10/04/21 10/04/21 18:59 06:59 18:59 Intake Total 236 Balance 236 Weight 93.894 kg Intake: Oral 236 Other: Voiding Method Toilet Toilet Toilet # Voids 1 1 - Labs CBC & Chem 7: 10/04/21 05:47 10/04/21 05:47 Labs: Abnormal Lab Results - Last 24 Hours (Table) 10/04/21 10/04/21 Range/Units 05:47 05:47 RBC 3.80 L (4.10-5.20) X 10*6/uL Hgb 11.7 L (12.0-15.0) g/dL Hct 35.9 L (37.2-46.3) % Anion Gap 8.00 L (10.00-18.00) mmol/L BUN 6.1 L (9.0-27.0) mg/dL BUN/Creatinine Ratio 8.71 L (12.00-20.00) Ratio Calcium 8.6 L (8.7-10.3) mg/dL Total Protein 5.9 L (6.2-8.2) g/dL
[2021-10-05] MEDS: KETOROLAC 15 MG/ML 1 ML VIAL IVP PRN (04:55)
[2021-10-05 07:51] VITALS: BP 138/72; PULSE 52; RESP 16; TEMP 98.3
[2021-10-05] MEDS: PANTOPRAZOLE 40 MG TABLET PO SCH (09:17)
[2021-10-05] MEDS: DICYCLOMINE 10 MG CAP PO SCH ×2 (09:17→13:38)
[2021-10-05] MEDS ORDERED: KETOROLAC 15 MG/ML 1 ML VIAL IM STA (12:40)
--- NOTE | 2021-10-05 12:45 | P.PN ---
Subjective Progress Note Date: 10/05/21 Principal diagnosis: Abdominal pain 31-year-old female who was admitted with abdominal pain post surgical laparoscopic cholecystectomy from last Friday. Patient was seen and examined by Dr. Perry states pain was atypical for postsurgical pain. Patient states she's had 2 bowel movements and she's been admitted. She still having abdominal pain that's in the right upper and mid quadrant radiating to her right shoulder and around her back to her flank region. No associated nausea or vomiting. Objective - Vital Signs Vital signs: Vital Signs Temp 98.3 F 10/05/21 07:51 Pulse 52 L 10/05/21 07:51 Resp 16 10/05/21 07:51 BP 138/72 10/05/21 07:51 Pulse Ox 97 10/05/21 07:51 Intake & Output 10/04/21 10/05/21 10/05/21 18:59 06:59 18:59 Intake Total 540 Balance 540 Intake: Oral 540 Other: Voiding Method Toilet Toilet # Voids 1 3 1 # Bowel Movements 1 - Exam General appearance: The patient is alert, oriented, appears in no acute distress. Obese. HET: Head is normocephalic and atraumatic. Conjunctiva pink. Sclera anicteric. Neck: Supple without lymphadenopathy. Abdomen: Soft, right upper quadrant, flank, and right back tenderness to palpation, nondistended with bowel sounds. No guarding or rigidity. Extremities: Normal skin color and turgor. No pedal edema Skin: No rashes, no jaundice Neurological: No focal deficits. Alert and oriented -3. - Labs CBC & Chem 7: 10/04/21 05:47 10/04/21 05:47 Labs: Abnormal Lab Results - Last 24 Hours (Table) 10/04/21 10/04/21 Range/Units 05:47 05:47 RBC 3.80 L (4.10-5.20) X 10*6/uL Hgb 11.7 L (12.0-15.0) g/dL Hct 35.9 L (37.2-46.3) % Anion Gap 8.00 L (10.00-18.00) mmol/L BUN 6.1 L (9.0-27.0) mg/dL BUN/Creatinine Ratio 8.71 L (12.00-20.00) Ratio Calcium 8.6 L (8.7-10.3) mg/dL Total Protein 5.9 L (6.2-8.2) g/dL Assessment and Plan (1) Abdominal pain Narrative/Plan: 31-year-old female who has had reported chronic right upper quadrant pain for the last several years has been following with general surgeon Dr. Perry. He has had extensive outpatient workup including CAT scans, ultrasounds, HIDA scans, EGD and colonoscopy without any significant finding. Last HIDA scan did show poorly functioning gallbladder and patient had O patient laparoscopic cholecystectomy on 09/28/2021. Patient states since then she had felt better initially and then Friday woke up with excruciating pain again. Similar pain 2 prior to her surgery. States the pain is in the right upper quadrant wraps around her shoulder. Symptoms are not likely sphincter of oddi, likely functional abdominal pain possible IBS. Will start patient on dicyclomine 10 mg 4 times a day, encourage patient for ambulation. Pain almost musculoskeletal in nature. Also need to consider possible pain related to large complex right ovarian cyst. Consider gynecology consult Current Visit: Yes Status: Acute Code(s): R10.9 - UNSPECIFIED ABDOMINAL PAIN SNOMED Code(s): 87731836 Plan: 1. Continue symptomatic and supportive care 2. Encouraged ambulation 3. Dicyclomine 10 mg 4 times a day 4. No plans on endoscopic evaluation 5. This is likely functional abdominal pain, possible IBS. Can have further management outpatient with gastroenterology. 6. Consider consultation to gynecology for large complex right ovarian cyst. Thank you for allowing us to participate in the care of the patient, the GI service will sign off, gastroenterology will not be available at the hospital this weekend. If further evaluation by gastroenterology is required the patient will need transfer as per the primary team's discretion. Dr. Colleen Robert I agree with the dictator's note, documented as a scribe by Makenna Song.
[2021-10-05] MEDS: HYDROcodone/APAP 5-325MG 1 EACH TAB PO PRN (13:38)
--- NOTE | 2021-10-05 20:34 | P.DS ---
Providers Date of admission: 10/04/21 14:13 Expected date of discharge: 10/05/21 Attending physician: Roberto Carrillo Consults: 10/02/21 17:11 Consult Physician Routine Consulting Provider: Autumn Perry Consult Reason/Comments: post operative abdominal pain radiating to right shoulder Do you want consulting provider notified?: Yes 10/03/21 10:20 Consult Physician Routine Consulting Provider: Padmini Robert Consult Reason/Comments: POST SURGICAL CHOLECYSTECTOMY ABDOMINAL PAIN Do you want consulting provider notified?: Yes Primary care physician: Roberto Carrillo Hospital Course: Final Diagnosis Right upper quadrant pain likely due to postoperative pain. CT abdomen showed no fluid collection. Right ovarian complex cyst. Transvaginal ultrasound was done. Follow-up after normal menstrual period was recommended. S/p laparoscopic cholecystectomy on 09/28/2021. Mild leukocytosis improved GI and DVT prophylaxis Full code Discharge disposition Patient is being discharged in a stable condition with guarded prognosis to home. Patient will follow-up with Dr. Carrillo in the outpatient setting upon discharge. Patient is also to follow up with GI, Dr. Perry, and jeeper operator DR. Bhatia in 1-2 weeks. Total time taken is greater than 35 minutes. Hospital course This is a 31-year-old female who was recently admitted with abdominal and post op pain status post cholecystectomy and was being closely monitored. Patient was evaluated by DR. Perry and no further surgical interventions at this time. Patient was also seen by GI and started on bentyl and patient reports to some improvement in her cramping. Patient continues to have abdominal pain in the lower right quadrant and had ct abdomen which was suggestive of ovarian cyst on the right and recommend outpatient follow up with her clothing and textiles teacher Dr. Bhatia in one week. Radiology recommends imaging after having a normal menstrual cycle. Encouraged increased activity as tolerated. Encouraged oral intake Currently no reports of chest pain, shortness of breath, or palpitations. Patient is afebrile. No reports of nausea or vomiting and patient is tolerating diet. Patient will be discharged home today. Physical exam: Gen: This is a 31 year old female alert and oriented x3 in no acute distress. obese HEENT: Head is atraumatic, normocephalic. Pupils equal, round. Sclerae is anicteric. NECK: Supple. No JVD. No lymphadenopathy. No thyromegaly. LUNGS: Clear to auscultation. No wheezes or rhonchi. No intercostal retractions. HEART: Regular rate and rhythm. No murmur. ABDOMEN: Soft. Bowel sounds are present. No masses. rlq tenderness. EXTREMITIES: No pedal edema. No calf tenderness. NEUROLOGICAL: Patient is awake, alert and oriented x3. Cranial nerves 2 through 12 are grossly intact. Please refer to medication reconciliation sheet for a list of medications. The impression and plan of care has been dictated by Praveena Gibbs, Nurse Practitioner as directed. Dr. Jorge MD I have performed a history and examination and MDM of this patient, discussed the same with the dictator, and agree with the dictator's assessment and plan as written ,documented as a scribe. Based on total visit time, I have performed more than 50% of the visit. Patient Condition at Discharge: Stable Plan - Discharge Summary Discharge Rx Participant: No New Discharge Prescriptions: New HYDROcodone/APAP 5-325MG [[place] 5-325] 1 each PO Q4HR PRN #12 tab PRN Reason: Pain Pantoprazole [Protonix] 40 mg PO AC-BRKFST 30 Days #30 tab Dicyclomine [Bentyl] 10 mg PO QID 30 Days #120 cap Melatonin 5 mg PO HS PRN #20 tablet PRN Reason: Insomnia Continue Docusate [Colace] 100 mg PO TID HYDROcodone/APAP 5-325MG [[place] 5-325] 1 - 2 tab PO Q6HR PRN #15 tab PRN Reason: Pain Discharge Medication List HYDROcodone/APAP 5-325MG [[place] 5-325] 1 - 2 tab PO Q6HR PRN #15 tab 09/28/21 [Rx] Docusate [Colace] 100 mg PO TID 10/02/21 [History] Dicyclomine [Bentyl] 10 mg PO QID 30 Days #120 cap 10/05/21 [Rx] HYDROcodone/APAP 5-325MG [[place] 5-325] 1 each PO Q4HR PRN #12 tab 10/05/21 [Rx] Melatonin 5 mg PO HS PRN #20 tablet 10/05/21 [Rx] Pantoprazole [Protonix] 40 mg PO AC-BRKFST 30 Days #30 tab 10/05/21 [Rx] Follow up Appointment(s)/Referral(s): Roberto Carrillo MD [Primary Care Provider] - 1-2 days Bud Bhatia DO [REFERRING] - 1 Week Autumn Perry DO [Family Provider] - 1 Week Padmini Robert MD [STAFF PHYSICIAN] - 3 Weeks Patient Instructions/Handouts: Ovarian Cyst (DC), Abdominal Pain (GEN) Activity/Diet/Wound Care/Special Instructions: Activity Limited until follow-up Follow-up with primary care provider on discharge Continue current diet Follow-up with GI outpatient Follow-up Gen. surgery outpatient Follow-up with your clothing and textiles teacher in 1-2 weeks Continue taking medications as prescribed Discharge Disposition: HOME SELF-CARE
== END 2021-10-05 14:04 | disposition home or self-care (01) ==
LOC: EC 12:28 → 6NMEDSUR 17:19 → INTOOBSV 10-04 14:13 → OBSVTOIN 10-04 14:13 → UNDODISIN 10-05 14:04
PROVIDERS: ADMIT Family Medicine; ATTEND Family Medicine
DX: R10.11 Right upper quadrant pain (principal); N83.291 Other ovarian cyst, right side; G89.18 Other acute postprocedural pain; D72.829 Elevated white blood cell count, unspecified; R11.0 Nausea; M25.511 Pain in right shoulder; K52.9 Noninfective gastroenteritis and colitis, unspecified; J45.909 Unspecified asthma, uncomplicated; F32.A Depression, unspecified; K29.70 Gastritis, unspecified, without bleeding; E66.9 Obesity, unspecified; Z68.36 Body mass index [BMI] 36.0-36.9, adult; F17.210 Nicotine dependence, cigarettes, uncomplicated; Z71.9 Counseling, unspecified; Z88.2 Allergy status to sulfonamides; Z90.49 Acquired absence of other specified parts of digestive tract; Z81.8 Family history of other mental and behavioral disorders; Z82.5 Family history of asthma and other chronic lower respiratory diseases
CPT/HCPCS: 96376 ×5; 96361 ×4; 96372 ×3; 96375 ×2; 96374; 99285; 36415; 80053 ×2; 82150; 83605; 83690; 85025 ×3; 85610; 85730; 81001; 81025; 93976; 76830; 74177; G0378 ×4; J2060 ×2; J2270; J2405; J1885 ×4; J1170 ×2; Q9967; J1644 ×3

== ENCOUNTER → 2022-03-09 | Outpatient (CLI) | payer OTHER | END | disposition home or self-care (01) | LOC: LABWHC1 08:04 | PROVIDERS: ATTEND Emergency Medicine | DX: Z20.822 Contact with and (suspected) exposure to COVID-19 (principal) | CPT/HCPCS: 87635 ==

== ENCOUNTER → 2022-05-08 | Outpatient (CLI) | payer OTHER ==
--- NOTE | 2022-05-08 20:39 | MR ---
EXAMINATION TYPE: MR cervical spine wo con DATE OF EXAM: 05/08/2022 INDICATION: Patient age:Female; 31 years old; Reason for study: M54.41; M51.26; [facility]. Neck pain that radiates down right arm to finger. [facility] 2019. COMPARISON: None. TECHNIQUE: Multi planar, multi sequence imaging was performed utilizing: T1-weighted, T2-weighted, an d turbo inversion recovery imaging of the cervical spine. IV Contrast: None FINDINGS: Alignment: The cervical vertebral bodies have preserved heights. Alignment is within normal limits gi anu patient positioning. Bones: Bone signal is within normal limits. Multilevel degenerative disc disease is noted and most p ronounced at the C5-C6 vertebral levels. Cord: The spinal cord is unremarkable with regards to their signal intensity and morphology. Discs: Intervertebral disc signal is maintained. C2-C3: No significant disc pathology. The spinal canal is patent. No neural foraminal stenosis. C3-C4: No significant disc pathology. The spinal canal is patent. No neural foraminal stenosis. C4-C5: A right central disc osteophyte complex is present which minimally narrows the ventral subarac hnoid space. No neural foraminal stenosis. C5-C6: A eccentric left disc osteophyte complex is present with mild spinal canal stenosis. This mil dly impresses upon the left spinal cord. No evidence of signal change within the spinal cord. No neur al foraminal stenosis. C6-C7: No significant disc pathology. The spinal canal is patent. No neural foraminal stenosis. C7-T1: No significant disc pathology. The spinal canal is patent. No neural foraminal stenosis. Other: None. IMPRESSION: 1. No evidence for disc herniation or significant spinal canal or neural foraminal stenosis to explai n the patient's pelvis. 2. C5-C6 eccentric left disc osteophyte complex which impresses on the anterior left spinal cord, no evidence of myelomalacia.
== END | disposition home or self-care (01) ==
LOC: RADMRIMAIN 19:40
PROVIDERS: ATTEND Family Medicine
DX: M25.78 Osteophyte, vertebrae (principal); M54.2 Cervicalgia; G54.0 Brachial plexus disorders
CPT/HCPCS: 72141

== ENCOUNTER → 2022-05-21 | Outpatient (CLI) | payer OTHER ==
--- NOTE | 2022-05-21 12:55 | US ---
EXAMINATION TYPE: US carotid duplex BILAT DATE OF EXAM: 05/21/2022 COMPARISON: NONE CLINICAL HISTORY: G45.0 THORACIC OUTLET SYNDROME. Patient states right arm numbness and fingers. No abnormal BP. TECHNIQUE: Carotid duplex ultrasound examination. Indirect Doppler criteria was utilized. FINDINGS: EXAM MEASUREMENTS: RIGHT: Peak Systolic Velocity (PSV) cm/sec ----- Right CCA: 91.6 ----- Right ICA: 122.6 ----- Right ECA: 105.6 ICA/CCA ratio: 1.3 RIGHT: End Diastole cm/sec ----- Right CCA: 22.6 ----- Right ICA: 35.4 ----- Right ECA: 20.2 LEFT: Peak Systolic Velocity (PSV) cm/sec ----- Left CCA: 105.6 ----- Left ICA: 137.1 ----- Left ECA: 105.6 ICA/CCA ratio: 1.3 LEFT: End Diastole cm/sec ----- Left CCA: 28.0 ----- Left ICA: 32.1 ----- Left ECA: 15.0 VERTEBRALS (direction of flow): Right Vertebral: Antegrade Left Vertebral: Antegrade Rhythm: Normal No significant velocity elevations, stenosis, plaque or wall thickening. IMPRESSION: 1. 50-69% stenosis of the left carotid bifurcation by peak systolic velocity. 2. Less than 50% stenosis of the right carotid bifurcation. Criteria for Assigning % of Stenosis / Diameter reduction (Estimation based on the indirect measurements of the internal carotid artery velocities (ICA PSV). 1. Normal (no stenosis)=ICA PSV < 125 cm/s: ratio < 2.0: ICA EDV<40 cm/s. 2. Less than 50% stenosis=ICA PSV < 125 cm/s: ratio < 2.0: ICA EDV<40 cm/s. 3. 50 to 69% stenosis=ICA PSV of 125 to 230 cm/s: ration 2.0 ? 4.0: ICA EDV 40-100 cm/s. 4. Greater than 70% stenosis to near occlusion= ICA PSV > 230 cm/s: ratio > 4.0: ICA EDV > 100 cm/s. 5. Near occlusion= ICA PSV velocities may be low or undetectable: variable ratio and ICA EDV. 6. Total occlusion=unable to detect flow.
== END | disposition home or self-care (01) ==
LOC: RADUSWWP 12:26
PROVIDERS: ATTEND Family Medicine
DX: I65.23 Occlusion and stenosis of bilateral carotid arteries (principal)
CPT/HCPCS: 93880

== ENCOUNTER 2024-07-15 07:24 | Emergency (ER) | payer OTHER ==
[2024-07-15 07:41] VITALS: RESP 20; TEMP 98.5
--- NOTE | 2024-07-15 08:17 | XR ---
EXAMINATION TYPE: XR ankle complete LT DATE OF EXAM: 07/15/2024 CLINICAL HISTORY: Pain TECHNIQUE: Frontal, lateral and oblique images of the left ankle are obtained. COMPARISON: None. FINDINGS: There is no acute fracture/dislocation evident in the left ankle. The ankle mortise appea rs within normal limits. The overlying soft tissue appears unremarkable. IMPRESSION: Unremarkable study. [facility], , 07/15/2024 8:14 AM
--- NOTE | 2024-07-15 08:28 | ED ---
Lower Extremity Injury HPI - General Chief Complaint: Extremity Injury, Lower Stated Complaint: left foot pain Time Seen by Provider: 07/15/24 07:40 Source: patient Mode of arrival: ambulatory Limitations: no limitations - History of Present Illness Initial Comments: 33-year-old female presents emergency department reporting left ankle pain. States that she drank heavily yesterday and injured her left ankle. She states that it gave out on her and rolled outwards and she felt a pop. She has been able to put some weight on it however it is extremely painful. She has not taken anything for pain at this time. She denies any knee or hip pain. No open abrasions or lacerations. No history of fracture. Denies concern for . No other alleviating, precipitating modifying factors - Related Data Home Medications Medication Instructions Recorded Confirmed Docusate [Colace] 100 mg PO TID 10/02/21 10/02/21 Previous Rx's Medication Instructions Recorded HYDROcodone/APAP 5-325MG [[place] 1 - 2 tab PO Q6HR PRN #15 tab 09/28/21 5-325] Dicyclomine [Bentyl] 10 mg PO QID 30 Days #120 cap 10/05/21 HYDROcodone/APAP 5-325MG [[place] 1 each PO Q4HR PRN #12 tab 10/05/21 5-325] Melatonin 5 mg PO HS PRN #20 tablet 10/05/21 Pantoprazole [Protonix] 40 mg PO AC-BRKFST 30 Days #30 tab 10/05/21 HYDROcodone/APAP 5-325MG [[place] 1 tab PO Q6HR PRN 3 Days #12 tab 07/15/24 5-325] Allergies Allergy/AdvReac Type Severity Reaction Status Date / Time Sulfa (Sulfonamide Allergy Rash/Hives Verified 07/15/24 07:41 Antibiotics) sulfamethoxazole Allergy Rash/Hives Verified 07/15/24 07:41 [From Bactrim] trimethoprim [From Bactrim] Allergy Rash/Hives Verified 07/15/24 07:41 Review of Systems ROS Statement: Those systems with pertinent positive or pertinent negative responses have been documented in the HPI. ROS Other: All systems not noted in ROS Statement are negative. Past Medical History Past Medical History: Asthma Additional Past Medical History / Comment(s): scoliosis History of Any Multi-Drug Resistant Organisms: None Reported Past Surgical History: Cholecystectomy Additional Past Surgical History / Comment(s): wisdom teeth removed. EGD/colonoscopy Past Anesthesia/Blood Transfusion Reactions: No Reported Reaction Past Psychological History: Depression Smoking Status: Light tobacco smoker, Vaper Past Alcohol Use History: Occasional Past Drug Use History: Marijuana - Past Family History Mother Family Medical History: COPD Additional Family Medical History / Comment(s): Depression General Exam Limitations: no limitations General appearance: alert, in no apparent distress Head exam: Present: atraumatic, normocephalic, normal inspection Extremities exam: Present: joint swelling (Swelling to the lateral malleolus. Tenderness to the posterior heel on the left. 2+ DP and PT pulses. No abrasions or lacerations. Tenderness with dorsiflexion and plantarflexion howev er these motions are intact) Neurological exam: Present: alert, oriented X3, CN II-XII intact Psychiatric exam: Present: anxious Skin exam: Present: warm, dry, intact, normal color. Absent: rash Course Vital Signs 07/15/24 07/15/24 07:38 10:20 Temperature 98.5 F Pulse Rate 121 H 86 Respiratory 20 20 Rate Blood Pressure 121/86 O2 Sat by Pulse 97 98 Oximetry Medical Decision Making - Medical Decision Making Was pt. sent in by a medical professional or institution (TETO Sullivan, HEARING AID ASSEMBLY SUPERVISOR, urgent care, hospital, or usp...) When possible be specific @ -No Did you speak to anyone other than the patient for history (EMS, parent, family, police, friend...)? What history was obtained from this source @ -No Did you review nursing and triage notes (agree or disagree)? Why? @ -I reviewed and agree with nursing and triage notes Were old charts reviewed (outside hosp., previous admission, EMS record, old EKG, old radiological studies, urgent care reports/EKG's, usp records)? Report findings @ -No old charts were reviewed Differential Diagnosis (chest pain, altered mental status, abdominal pain women, abdominal pain men, vaginal bleeding, weakness, fever, dyspnea, syncope, headache, dizziness, GI bleed, back pain, seizure, CVA, palpatations, mental health, musculoskeletal)? @ -Differential Musculoskeletal Muscular strain, contusion, ligament sprain, fracture, arthritis, septic arthritis, bursitis, cellulitis, muscle spasm, nerve compression, DVT, arterial occlusion, herpes zoster, electrolyte abnormality, tumor.... This is not meant to be in all inclusive list EKG interpreted by me (3pts min.). @ -Not done X-rays interpreted by me (1pt min.). @ -Yes which demonstrates no fracture CT interpreted by me (1pt min.). @ -None done U/S interpreted by me (1pt. min.). @ -None done What testing was considered but not performed or refused? (CT, X-rays, U/S, labs)? Why? @ -None What meds were considered but not given or refused? Why? @ -None Did you discuss the management of the patient with other professionals (professionals i.e. , PA, HEARING AID ASSEMBLY SUPERVISOR, lab, RT, psych nurse, aids social worker, non destructive testing engineer, teacher, ship officer, case monitor)? Give summary @ -No Was smoking cessation discussed for >3mins.? @ -No Was critical care preformed (if so, how long)? @ -No Were there social determinants of health that impacted care today? How? (Homelessness, low income, unemployed, alcoholism, drug addiction, transportation, low edu. Level, literacy, decrease access to med. care, longterm, rehab)? @ -No Was there de-escalation of care discussed even if they declined (Discuss DNR or withdrawal of care, Hospice)? DNR status @ -No What co-morbidities impacted this encounter? (DM, HTN, Smoking, COPD, CAD, Cancer, CVA, ARF, Chemo, Hep., AIDS, mental health diagnosis, sleep apnea, morb id obesity)? @ -None Was patient admitted / discharged? Hospital course, mention meds given and route, prescriptions, significant lab abnormalities, going to OR and other pertinent info. @ -Upon arrival patient seen and evaluated in [address]. Thorough history and physical exam was performed. Patient was given 4 mg of IM morphine. She is taken for x-ray which demonstrates no fracture. Patient is placed in [place]. She will be given a short prescription for [place] at home. We did provide her with crutches. Patient will not weight-bear on the left extremity while she has pain. She is to rest, ice and elevate the extremity. Follow-up with orthopedic office for further management of her pain and return for any new or worsening symptoms. Patient agreeable to the plan and was discharged in stable condition Undiagnosed new problem with uncertain prognosis? @ -No Drug Therapy requiring intensive monitoring for toxicity (Heparin, Nitro, Insulin, Cardizem)? @ -No Were any procedures done? @ -No Diagnosis/symptom? @ -acute left ankle pain Acute, or Chronic, or Acute on Chronic? @ -Acute Uncomplicated (without systemic symptoms) or Complicated (systemic symptoms)? @ -Uncomplicated Side effects of treatment? @ -No Exacerbation, Progression, or Severe Exacerbation? @ -No Poses a threat to life or bodily function? How? (Chest pain, [place], [place], pneumonia, PE, COPD, DKA, ARF, appy, cholecystitis, CVA, Diverticulitis, Homicidal, Suicidal, threat to staff... and all critical care pts) @ -No Disposition Clinical Impression: Left ankle sprain Disposition: HOME SELF-CARE Condition: Stable Instructions (If sedation given, give patient instructions): Ankle Sprain (ED) Additional Instructions: Please take the pain meds as needed every 6 hours. Ambulate with the crutches. Follow up with the orthopedic office. They may need to complete further imaging. Ice and elevate the extremity. Return for any new or worsening symptoms Prescriptions: HYDROcodone/APAP 5-325MG [[place] 5-325] 1 tab PO Q6HR PRN 3 Days #12 tab PRN Reason: Severe Breakthrough Pain Is patient prescribed a controlled substance at d/c from ED?: Yes When asked, does pt state using other controlled substances?: No If prescribed controlled substance>3 days was MAPS reviewed?: Prescribed <3 Days If opioid is for acute pain is fill amount 7 days or less?: Yes Referrals: Roberto Carrillo MD [Primary Care Provider] - 1-2 days Jason Sullivan MD [STAFF PHYSICIAN] - 1-2 days Time of Disposition: 09:27
[2024-07-15] MEDS: MORPHINE SULFATE 4 MG/ML SYRINGE IM STA (09:44)
[2024-07-15 10:26] VITALS: BP 121/86; PULSE 86
== END 2024-07-15 10:25 | disposition home or self-care (01) ==
LOC: EC 07:24
DX: S93.402A Sprain of unspecified ligament of left ankle, initial encounter (principal); F17.290 Nicotine dependence, other tobacco product, uncomplicated; Z88.1 Allergy status to other antibiotic agents; Z88.2 Allergy status to sulfonamides; W22.8XXA Striking against or struck by other objects, initial encounter
CPT/HCPCS: 99283; 96372; 29515; 73610; L4350; J2270